=== PATIENT | female | born 1945 | race Caucasian/White ===

== ENCOUNTER → 2023-12-25 | Outpatient (CLI) | payer MEDICARE, BC, SELFPAY ==
[2023-12-25 16:39] LABS: Basophils # (Auto) 0.1 Thou/mm3 (0.0-0.2); Basophils % (Auto) 0 % (0-2.5); Eosinophils # (Auto) 0.1 Thou/mm3 (0.0-0.5); Eosinophils % (Auto) 0 % (0-10); Hematocrit 40.4 % (36.0-46.0); Hemoglobin 13.2 g/dL (12.0-16.0); Immature Granulocytes % (Auto) 1 % (0-0); Immature Granulocytes Auto 0.16 Thou/mm3 (0.00-0.00); Lymphocytes # (Auto) 1.2 Thou/mm3 (1.0-4.8); Lymphocytes % (Auto) 5 % (10-50); Mean Corpuscular HGB Conc 32.7 g/dl (31.0-37.0); Mean Corpuscular Hemoglobin 29.8 pg (25.0-35.0); Mean Corpuscular Volume 91 fL (80-100); Monocytes # (Auto) 1.5 Thou/mm3 (0.0-0.8); Monocytes % (Auto) 7 % (0-12); Neutrophils # (Auto) 19.8 Thou/mm3 (1.8-7.7); Neutrophils % (Auto) 87 % (37-80); Nucleated Red Blood Cell % 0 /100 WBC (0); Platelet Count 316 Thou/mm3 (140-440); Red Blood Count 4.43 Miln/mm3 (4.00-5.20); White Blood Count 22.8 Thou/mm3 (3.6-11.0)
[2023-12-25 17:13] LABS: Alanine Aminotransferase < 7 U/L (10-49); Albumin, Serum 4.3 gm/dL (3.4-4.8); Albumin/Globulin Ratio 1.7 (1.2-2.2); Alkaline Phosphatase 123 U/L (46-116); Anion Gap 7 (7-16); Aspartate Amino Transferase 20 U/L (0-34); BUN/Creatinine Ratio 21 Ratio (12-20); Bilirubin,Total 0.9 mg/dL (0.3-1.2); Blood Urea Nitrogen 23 mg/dL (9-23); Calcium 9.7 mg/dL (8.3-10.6); Calcium (Corrected) 9.7 mg/dL (8.5-10.1); Carbon Dioxide 24.2 mMol/L (20.0-31.0); Cardiac Risk Estimate 2.8 RATIO (3.7-5.6); Chloride 104 mMol/L (98-107); Cholesterol 152 mg/dL (132-200); Creatinine (Component) 1.1 mg/dL (0.6-1.3); Free T4 (Free Thyroxine) 1.34 ng/dL (0.89-1.76); Globulin 2.5 gm/dL (2.3-3.5); Glucose 115 mg/dL (74-106); HDL Cholesterol 54 mg/dL (40-60); LDL Cholesterol,Calculated 78 mg/dL (0-130); Osmolality,Calculated 274 (275-295); Potassium 4.4 mMol/L (3.4-5.1); Sodium 135 mMol/L (136-145); Thyroid Stimulating Hormone 0.64 uIU/mL (0.55-4.78); Total Protein 6.8 gm/dL (5.7-8.2); Triglycerides 102 mg/dL (30-150); eGFR 51 See Note
== END | disposition home or self-care (01) ==
PROVIDERS: PCP Family Medicine; Referring Provider Family Medicine; Visit Provider Family Medicine
DX: E78.1 Pure hyperglyceridemia (principal); Z13.1 Encounter for screening for diabetes mellitus; E03.2 Hypothyroidism due to medicaments and other exogenous substances; D50.0 Iron deficiency anemia secondary to blood loss (chronic)
CPT/HCPCS: 36415; 80053; 80061; 84439; 84443; 85025

== ENCOUNTER → 2024-01-06 | Outpatient (CLI) | payer MEDICARE, BC, SELFPAY ==
[2024-01-06 16:17] LABS: Basophils # (Auto) 0.1 Thou/mm3 (0.0-0.2); Basophils % (Auto) 1 % (0-2.5); Eosinophils # (Auto) 0.2 Thou/mm3 (0.0-0.5); Eosinophils % (Auto) 2 % (0-10); Hematocrit 37.9 % (36.0-46.0); Hemoglobin 12.6 g/dL (12.0-16.0); Immature Granulocytes % (Auto) 0 % (0-0); Immature Granulocytes Auto 0.02 Thou/mm3 (0.00-0.00); Lymphocytes # (Auto) 1.9 Thou/mm3 (1.0-4.8); Lymphocytes % (Auto) 20 % (10-50); Mean Corpuscular HGB Conc 33.2 g/dl (31.0-37.0); Mean Corpuscular Hemoglobin 30.4 pg (25.0-35.0); Mean Corpuscular Volume 91 fL (80-100); Monocytes # (Auto) 0.6 Thou/mm3 (0.0-0.8); Monocytes % (Auto) 7 % (0-12); Neutrophils # (Auto) 6.5 Thou/mm3 (1.8-7.7); Neutrophils % (Auto) 70 % (37-80); Nucleated Red Blood Cell % 0 /100 WBC (0); Platelet Count 329 Thou/mm3 (140-440); RDW Standard Deviation 46.8 fL (36.4-46.3); Red Blood Count 4.15 Miln/mm3 (4.00-5.20); White Blood Count 9.2 Thou/mm3 (3.6-11.0)
== END | disposition home or self-care (01) ==
LOC: COPL 15:26
PROVIDERS: PCP Family Medicine; Referring Provider Family Medicine; Visit Provider Family Medicine
DX: D50.0 Iron deficiency anemia secondary to blood loss (chronic) (principal)
CPT/HCPCS: 36415; 85025

== ENCOUNTER → 2024-02-26 | Outpatient (CLI) | payer MEDICARE, BC, SELFPAY | END | disposition home or self-care (01) | LOC: CDIM 14:03 | PROVIDERS: PCP Family Medicine | DX: M06.09 Rheumatoid arthritis without rheumatoid factor, multiple sites (principal) ==

== ENCOUNTER 2024-03-09 12:35 | Day surgery (SDC) | payer MEDICARE, BC, SELFPAY ==
--- NOTE | 2024-03-08 11:47 | EKG_ITS ---
[facility] Test Date: 2024-03-09 Pat Name: BELINDA CABAN Department: Room: - Gender: Female Aircraft Captain: RT STUDENT : 1945 Requested By: Yan Flor Order Number: [id number] Reading MD: Yan Flor Measurements Intervals [place] Rate: 86 P: 53 MI: 136 QRS: 46 QRSD: 89 T: 70 QT: 338 QTc: 405 Interpretive Statements SINUS RHYTHM Compared to ECG 06/11/2022 15:36:17 No significant changes /store/S0/[id number]
[2024-03-09] VITALS (10 sets, daily range): BP systolic 146–161; BP diastolic 71–91; PULSE 83–95; RESP 12–19; TEMP 36.2–36.7; O2SAT 95–99; BMI 24.0
[2024-03-09] MEDS: RINGERS LACTATED 500 ML 500 ML 20 ML IV (13:42)
[2024-03-09 14:22] LABS: Alanine Aminotransferase < 7 U/L (10-49); Albumin, Serum 4.4 gm/dL (3.4-4.8); Albumin/Globulin Ratio 1.6 (1.2-2.2); Alkaline Phosphatase 110 U/L (46-116); Anion Gap 6 (7-16); Aspartate Amino Transferase 12 U/L (0-34); BUN/Creatinine Ratio 21 Ratio (12-20); Bilirubin,Total 0.4 mg/dL (0.3-1.2); Blood Urea Nitrogen 17 mg/dL (9-23); Calcium 9.5 mg/dL (8.3-10.6); Calcium (Corrected) 9.5 mg/dL (8.5-10.1); Chloride 102 mMol/L (98-107); Creatinine (Component) 0.8 mg/dL (0.6-1.3); Estimated Creatinine Clearance 45.8 mL/min (>60); Globulin 2.7 gm/dL (2.3-3.5); Glucose 100 mg/dL (74-106); Osmolality,Calculated 275 (275-295); Potassium 4.6 mMol/L (3.4-5.1); Sodium 137 mMol/L (136-145); Total Protein 7.1 gm/dL (5.7-8.2); eGFR > 60 See Note
--- NOTE | 2024-03-09 16:30 | SUR.PHASEII ---
9118 Report received from Pippa GOMES
[2024-03-09] MEDS: PANTOPRAZOLE INJ 40 MG VIAL 80 MG IV (17:07)
--- NOTE | 2024-03-09 18:05 | SUR.PHASEII ---
1802 Patient meets discharge criteria from recovery, awake and alert, breathing unlabored, vital signs stable, denies pain, drinking water; tolerating well, patient assisted with dressing into her clothing by her daughter and this teletypewriter installer, discharge instructions given to patient and patients daughter, daughter signed discharge instructions. Patient given all her belongings prior to discharge, transported via wheelchair and left in a private vehicle.
== END 2024-03-09 18:05 | disposition home or self-care (01) ==
PROVIDERS: Anesthesiology; PCP Family Medicine; Referring Provider Internal Medicine Gastroenterology; Visit Provider Internal Medicine Gastroenterology
PROC: (CPT 43239; principal; 2024-03-09 14:15)
DX: K22.2 Esophageal obstruction (principal); K25.4 Chronic or unspecified gastric ulcer with hemorrhage; K29.70 Gastritis, unspecified, without bleeding; I10 Essential (primary) hypertension
CPT/HCPCS: 43239; 43249; 36415; 80053; 93005; A4217; A4649; C1725; J2470; J2704; J3010; J3490; J7120; J1805

== ENCOUNTER → 2024-03-21 | Outpatient (CLI) | payer MEDICARE, BC, SELFPAY ==
--- NOTE | 2024-03-21 16:28 | XR_ITS ---
Examination: Ribs, left, with PA chest, 5 views Technique: Chest PA, RIBS AP, RPO, LPO, AP coned lower ribs 5 views Exam date and time: March 21, 2024 7008 hours INDICATIONS: Patient fell March 18, 2024 with injury to the left chest, left rib pain Findings: Normal heart size No pneumothorax Prominent osteopenia Suspicious for fracture left ninth rib anteriorly IMPRESSION: No pneumothorax Suspicious for fracture nondisplaced left ninth rib anteriorly
== END | disposition home or self-care (01) ==
LOC: CDIM 16:21
PROVIDERS: PCP Family Medicine; Referring Provider Family Medicine; Visit Provider Family Medicine
DX: S29.9XXA Unspecified injury of thorax, initial encounter (principal); W19.XXXA Unspecified fall, initial encounter
CPT/HCPCS: 71101

== ENCOUNTER 2024-04-22 12:17 | Emergency (ER) | payer MEDICARE, BC, SELFPAY ==
[2024-04-22 12:20] VITALS: BP 135/85; PULSE 93; RESP 15; TEMP 36.8; O2SAT 98
[2024-04-22 12:21] VITALS: BMI 23.8
[2024-04-22 12:25] VITALS: PULSE 100; RESP 18; O2SAT 94
--- NOTE | 2024-04-22 12:28 | EKG_ITS ---
[facility] Test Date: 2024-04-22 Pat Name: BELINDA CABAN Department: Room: - Gender: Female Casino Floor Supervisor: : 1945 Requested By: Nasreen Ingram Order Number: [id number] Reading MD: Nasreen Ingram Measurements Intervals [place] Rate: 87 P: 67 IL: 132 QRS: 59 QRSD: 101 T: 58 QT: 341 QTc: 411 Interpretive Statements SINUS RHYTHM Compared to ECG 03/09/2024 12:31:48 No significant changes /store/S0/[id number].pdf
--- NOTE | 2024-04-22 12:28 | XR_ITS ---
Examination: CT abdomen with intravenous contrast CT pelvis with intravenous contrast 2-D coronal reconstructions 2-D sagittal reconstructions Date and time of exam:May 02, 2024 1456 hours Comparison 10/03/2021 INDICATIONS: Onset periumbilical pain today, history umbilical hernia. CTDI: vol (mGy) 15 DLP: (mGycm) 520 Technique: Multiple axial sections of the abdomen and pelvis have been obtained. 64 slice high-resolution scanner used. 3 mm axial sections have been obtained, post intravenous injection 60 cc [id number] 2-D sagittal, coronal reconstructions obtained. Low dose protocols were performed. One or more of the following dose reduction techniques were used; automated exposure control, adjustment of the mA and/or KV according to patient size, use of iterative reconstruction technique. Findings: No focal liver or splenic lesions No gallstones No pancreatic or adrenal mass Moderate bilateral renal parenchymal scar formation, no hydronephrosis Aorta normal size 6 mm fat-containing umbilical hernia Bowel is not present in this hernia defect Small lymph nodes in the right lower mesentery No pericecal inflammatory change No bowel obstruction No diverticulitis Large amounts of stool in the rectosigmoid Intact urinary bladder Moderate to advanced degenerative disc disease L5-S1 IMPRESSION: Moderate bilateral renal parenchymal scar formation, no hydronephrosis 6 mm fat-containing umbilical hernia, no bowel present in this hernia defect Small lymph nodes in the right lower mesentery No CT findings of appendicitis bowel obstruction or diverticulitis Large amounts of stool in the rectosigmoid
--- NOTE | 2024-04-22 12:28 | XR_ITS ---
Examination: AP chest single view Technique one AP upright portable chest single view Exam date and time: April 22, 2024 1325 hours INDICATIONS: Abdominal pain periumbilical pain chest pain today. FINDINGS: Normal heart size No lobar pneumonia or pulmonary edema The osseous structures are intact IMPRESSION: No lobar pneumonia or pulmonary edema
--- NOTE | 2024-04-22 12:30 | EDNOTE_ITS ---
<Statement entered by Danette Boogie MD - 04/23/24 16:19> As co-signing physician, I was present and available for consult prn. I concur with the plan and care as documented by the midlevel provider. ED Abdominal Pain RME/HPI General Chief Complaint: Abdominal Pain Stated complaint: abd pain Time seen by provider: 04/22/24 12:25 Arrival date/time: 04/22/24 12:17 RME / HPI RME / HPI narrative: 78-year-old female patient with significant history of Parkinson, hypertension, came in for evaluation regarding periumbilical pain. Onset of symptoms earlier this morning as sudden onset of periumbilical pain, described as crampy, similar to 5 out of 10. Denies any vomiting fever diarrhea constipation dysuria frequency or other complaints. Abdominal surgery includes bladder surgery. No medication was taken prior to arrival. Related Data Home Medications ?Medication ?Instructions ?Recorded ?Confirmed amantadine HCl 100 mg tablet 100 mg PO QDAY 03/09/24 0 03/09/24 amlodipine 5 mg tablet 5 mg PO QDAY 03/09/24 aspirin 81 mg tablet,delayed 81 mg PO QDAY 03/09/24 release atorvastatin 40 mg tablet 40 mg PO QPM 03/09/24 carbidopa ER 48.75 mg-levodopa 195 1 cap PO TID 03/09/24 mg capsule,extended release (Rytary) duloxetine 60 mg capsule,delayed 60 mg PO QDAY 5 03/09/24 release ropinirole 2 mg tablet 2 mg PO BID 03/09/24 5 tramadol 100 mg tablet,extended 100 mg PO QDAY PRN Marlin n 03/09/24 03/09/24 release 24 hr Held on 03/09/24. Instructions: Resume on 03/10/24. Previous Rx's ?Medication ?Instructions ?Recorded cefuroxime axetil 500 mg tablet 500 mg PO BID #14 tabs 04/22/24 lactulose 10 gram/15 mL oral 20 g (30 mL) PO BID PRN 0 04/22/24 solution constipation #300 mL Allergies Allergy/AdvReac Type Severity Reaction Status Date / Time No Known Allergies Allergy Verified 03/09/24 13:07 Review of Systems Review of Systems Narrative Review of Systems: Review of system reviewed and within normal limits except mentioned in HPI ED Exam Narrative Physical exam: VITAL SIGNS: Reviewed. GENERAL APPEARANCE: Alert and interactive, follows commands, no acute distress, HEAD AND FACE: Non-traumatic. ENT: PERRL, pink conjunctivitis, eyelid no trauma, Mucous membrane moist. NECK: Supple, nontender, no nuchal rigidity. CHEST: No tenderness, no crepitus, no paradoxical movement, no retractions. LUNGS: Clear, well ventilated, symmetric, no rales, no wheezing, no ronchi, no stridor, good breath sounds bilaterally. HEART: Regular rate, regular rhythm, no murmur, no gallops. ABDOMEN: Soft, positive bowel sounds, nondistended, no guarding, periumbilical tenderness no rebound, no masses, RECTAL: Deferred. GENITAL: Deferred. NEUROLOGICAL: Gross motor function intact sensory function intact, Appropriate for age. MUSCULOSKELETAL: low back nontender, full range of motion. EXTREMITIES: Nontender, full range of motion. SKIN: Color pink, dry, no rash, no lacerations, no abrasions, no contusions. LYMPHATICS: Deferred. Course Quality Measures none Orders Category Date Time Status CT Screening NOW Care 04/22/24 12:29 Active EKG (ED ONLY) *Do not use* NOW Care 04/22/24 12:29 Completed Insert IV NOW Care 04/22/24 12:[address] abdomen pelvis w con Stat Exams 04/22/24 12:28 Completed EKG (ED Only) Stat Exams 04/22/24 12:28 Draft XR chest 1V Stat Exams 04/22/24 12:28 Completed B-Type Natriuretic Peptide Stat Lab 04/22/24 12:35 Completed CBC Stat Lab 04/22/24 12:35 Completed Comprehensive Metabolic Panel Stat Lab 04/22/24 13:40 Completed Lipase Stat Lab 04/22/24 13:40 Completed Partial Thromboplastin Time Stat Lab 04/22/24 12:35 Completed Prothrombin Time with INR Stat Lab 04/22/24 12:35 Completed Troponin I Stat Lab 04/22/24 13:40 Completed Urinalysis, C/S if Indicated Stat Lab 04/22/24 12:43 Completed Urine Culture Stat Lab 04/22/24 12:43 Received Ketorolac Inj [Toradol Inj] Med 04/22/24 12:29 Discontinued 30 mg IVP X1 ONE Sodium Chloride 0.9% 1000 ml [Ns] 1,000 ml Med 04/22/24 12:30 Discontinued IV 999 mls/hr cefTRIAXone [Rocephin] 1,000 mg Med 04/22/24 17:07 Active SODIUM CHLORIDE 0.9% (Popper) [Ns 0.9% (P)] 50 ml IV X1 Vital Signs Vital signs: Vital Signs Temperature 98.2 F 04/22/24 12:20 Pulse Rate 93 04/22/24 12:20 Respiratory Rate 15 04/22/24 12:20 Blood Pressure 135/85 H 04/22/24 12:20 Pulse Oximetry (%) 98 04/22/24 12:20 Oxygen Delivery Method Room Air 04/22/24 12:20 Abdominal Pain [facility] Narrative [facility] Narrative:: 78-year-old female patient with significant history of Parkinson, hypertension, came in for evaluation regarding periumbilical pain. Onset of symptoms earlier this morning as sudden onset of periumbilical pain, described as crampy, similar to 5 out of 10. Denies any vomiting fever diarrhea constipation dysuria frequency or other complaints. Abdominal surgery includes bladder surgery. No medication was taken prior to arrival. EKG as interpreted by me showed normal sinus rhythm, ventricular rate of 87 bpm, no ST segment elevation depression noted. Laboratory Significant for UTI. CT scan of the abdomen and pelvis showed fat-containing umbilical hernia, and significant fecal material in the rectosigmoid colon. Otherwise unremarkable. Results discussed with the patient and family Patient received IV fluids for hydration, Toradol, and ceftriaxone IV Prior to discharge patient is not having any abdominal pain. Patient appears nontoxic and hemodynamically stable. Patient discharged home and instructed to follow-up with primary care provider in 24 to 48 hours. Instructed to return to the emergency department immediately if worsening of symptoms Patient data External records reviewed:: None Clinical information provided by:: patient and family Social determinants that could affect healthcare access:: none Patient has the following chronic illnesses:: Parkinson hypertension How is presenting disease/condition affected by chronic disease/condition?: exacerbated by Evaluation data The following diagnostics were reviewed and interpreted by me:: lab results, radiology exam(s) and EKG tracing(s) Lab and/or radiology exams considered but not ordered:: None Interpretation Summary: See results in MDM Medications / Prescriptions Medications or Prescriptions considered but not ordered:: None Medication administrations:: Medication Administration History Ceftriaxone Sodium 1,000 mg/ (Sodium Chloride) 50 mls @ 100 mls/hr IV X1 ONE Stop: 04/22/24 17:36 Discontinued Medications Sodium Chloride (Ns) 1,000 mls @ 999 mls/hr IV .Q1H1M ONE Stop: 04/22/24 13:30 Last Infusion: 04/22/24 14:00 Dose: Infused Documented By: Admin: 04/22/24 12:46 Dose: 999 mls/hr Documented By: DILCIA Ketorolac Tromethamine (Ketorolac Inj 30 Mg/Ml Vial) 30 mg IVP X1 ONE Stop: 04/22/24 12:30 Last Admin: 04/22/24 12:46 Dose: 30 mg Documented By: DILCIA Toradol IV, IV fluids and ceftriaxone IV Consultations Consultation(s) initiated? (list below): No Diagnosis Differential diagnosis abdominal pain: abdominal pain, constipation and small bowel obstruction Most likely diagnosis given after review of the tests above:: Umbilical hernia, UTI, constipation Admission Indicated Admission indicated?: not indicated Admission Request Was there a request for admission?: No Disposition Plan Disposition Plan: Discharge Discharge Attestation Discharge Attestation: The patient and all family members were given an opportunity to ask questions and understood the discharge instructions. Discharge instructions specifically effects, indications for sooner follow up or return to the emergency department, and the expected course of current diagnosis. Patient condition: Stable Discharge Plan Plan Patient Disposition: HOME (Self Care) Disposition Comment: Stable Prescriptions/Referrals Prescriptions/Med Rec: New lactulose 10 gram/15 mL solution 20 g PO BID PRN (Reason: constipation) Qty: 300 0RF cefuroxime axetil 500 mg tablet 500 mg PO BID Qty: 14 0RF No Action amantadine HCl 100 mg tablet 100 mg PO QDAY Patient Comments: TAKE 1 TABLET BY MOUTH TWICE A DAY atorvastatin 40 mg tablet 40 mg PO QPM Patient Comments: TAKE 1 TABLET BY MOUTH EVERY DAY amlodipine 5 mg tablet 5 mg PO QDAY Patient Comments: TAKE 1 TABLET BY MOUTH EVERY DAY ropinirole 2 mg tablet 2 mg PO BID Patient Comments: TAKE 1 TABLET BY MOUTH THREE TIMES A DAY duloxetine 60 mg capsule,delayed release(DR/EC) 60 mg PO QDAY tramadol 100 mg tablet extended release 24 hr 100 mg PO QDAY PRN (Reason: Pain) Patient Comments: TAKE 1 TABLET BY MOUTH EVERY DAY Rytary 48.75-195 mg capsule, extended release 1 cap PO TID aspirin 81 mg Tablet,Delayed Release (Dr/Ec) 81 mg PO QDAY Referrals: Mikal Chisholm MD [Primary Care Provider] - In 1 week Problem List Clinical Impression: Hernia, umbilical, Constipation, UTI (urinary tract infection) Patient/Caregiver Discharge Instructions Discharge Activity: activity as tolerated Education Materials: Understanding Urinary Tract ... Additional Instructions: Thank you for the opportunity for serving you today. You are stable for discharged . You are advised to: Follow-up with your PCP in 1 to 2 days and as per referral to general surgeon regarding your umbilical hernia Return to ED for worsening of symptoms Increase oral fluids Take medication as prescribed Print Language: Faroese Stand Alone Forms: Eleanor Award Info., Patient Portal Info Letter PA/LEGAL ANALYST Supervising Physician PA/LEGAL ANALYST Supervising Physician: Md Keagan
[2024-04-22] MEDS: SODIUM CHLORIDE 0.9% 1000 ML 1,000 ML 999 ML IV (12:46)
[2024-04-22] MEDS: KETOROLAC INJ 30 MG/ML VIAL IVP (12:46)
[2024-04-22 12:51] LABS: Collection Type, Urine Clean Catch
[2024-04-22 12:52] LABS: Basophils # (Auto) 0.1 Thou/mm3 (0.0-0.2); Basophils % (Auto) 1 % (0-2.5); Eosinophils # (Auto) 0.2 Thou/mm3 (0.0-0.5); Eosinophils % (Auto) 2 % (0-10); Hematocrit 39.8 % (36.0-46.0); Hemoglobin 13.4 g/dL (12.0-16.0); Immature Granulocytes % (Auto) 0 % (0-0); Immature Granulocytes Auto 0.01 Thou/mm3 (0.00-0.00); Lymphocytes # (Auto) 1.6 Thou/mm3 (1.0-4.8); Lymphocytes % (Auto) 20 % (10-50); Mean Corpuscular HGB Conc 33.7 g/dl (31.0-37.0); Mean Corpuscular Hemoglobin 29.8 pg (25.0-35.0); Mean Corpuscular Volume 89 fL (80-100); Monocytes # (Auto) 0.6 Thou/mm3 (0.0-0.8); Monocytes % (Auto) 7 % (0-12); Neutrophils # (Auto) 5.5 Thou/mm3 (1.8-7.7); Neutrophils % (Auto) 69 % (37-80); Nucleated Red Blood Cell % 0 /100 WBC (0); Platelet Count 289 Thou/mm3 (140-440); RDW Standard Deviation 44.2 fL (36.4-46.3); Red Blood Count 4.49 Miln/mm3 (4.00-5.20); White Blood Count 7.9 Thou/mm3 (3.6-11.0)
[2024-04-22 13:19] LABS: B-Type Natriuretic Peptide < 20 pg/mL (0-100)
[2024-04-22 13:37] LABS: Bacteria,Urine 4+; Bilirubin,Urine Negative (Negative); Blood,Urine Negative (Negative); Clarity,Urine Clear (Clear/Hazy); Color,Urine Yellow (Lt Yel-Yel); Glucose, Urine Negative (Negative); Hyaline Casts,Urine < 1 /hpf (0-1); Ketones,Urine Negative (Negative); Leukocyte Esterase,Urine Positive (Negative); Nitrite,Urine Positive (Negative); PH,Urine 5.5 (5.0-7.0); Protein,Urine Negative (Neg - Trace); RBC,Urine 1 /hpf (0-3); Specific Gravity,Urine 1.019 (1.001-1.035); Squamous Epithelial Cell,Urine 1 /hpf (0-5); Urobilinogen,Urine Negative mg/dL (0.0-1.0); WBC,Urine 13 /hpf (0-5)
[2024-04-22 13:41] LABS: Culture Indicated,Urine Yes
[2024-04-22 14:01] LABS: Partial Thromboplastin Time 26.2 Seconds (22.0-36.0); Prothrombin Time 10.9 Seconds (9.0-12.2)
[2024-04-22 14:11] VITALS: BP 148/79; PULSE 89; RESP 18; TEMP 36.4; O2SAT 99
[2024-04-22 14:14] LABS: Alanine Aminotransferase < 7 U/L (10-49); Albumin, Serum 4.2 gm/dL (3.4-4.8); Albumin/Globulin Ratio 1.6 (1.2-2.2); Alkaline Phosphatase 116 U/L (46-116); Anion Gap 8 (7-16); Aspartate Amino Transferase 18 U/L (0-34); BUN/Creatinine Ratio 24 Ratio (12-20); Bilirubin,Total 0.6 mg/dL (0.3-1.2); Blood Urea Nitrogen 19 mg/dL (9-23); Calcium 9.1 mg/dL (8.3-10.6); Calcium (Corrected) 9.1 mg/dL (8.5-10.1); Carbon Dioxide 25.3 mMol/L (20.0-31.0); Chloride 105 mMol/L (98-107); Creatinine (Component) 0.8 mg/dL (0.6-1.3); Estimated Creatinine Clearance 45.8 mL/min (>60); Globulin 2.6 gm/dL (2.3-3.5); Glucose 93 mg/dL (74-106); Lipase 29 U/L (12-53); Osmolality,Calculated 277 (275-295); Potassium 5.3 mMol/L (3.4-5.1); Sodium 138 mMol/L (136-145); Total Protein 6.8 gm/dL (5.7-8.2); Troponin I < 0.020 ng/mL (0.0-0.045); eGFR > 60 See Note
[2024-04-22 16:06] VITALS: BP 160/91; PULSE 88; RESP 19; TEMP 36.5; O2SAT 99
[2024-04-22] MEDS: cefTRIAXone 1,000 MG in SODIUM CHLORIDE 0.9% (Popper) 50 ML 100 MG IV (17:17)
[2024-04-22 18:06] VITALS: BP 171/86; PULSE 88; RESP 16; TEMP 36.7; O2SAT 99
== END 2024-04-22 18:06 | disposition home or self-care (01) ==
PROVIDERS: Nurse Practitioner Family; Emergency Provider Emergency Medicine; PCP Family Medicine
DX: K42.9 Umbilical hernia without obstruction or gangrene (principal); K59.00 Constipation, unspecified; N39.0 Urinary tract infection, site not specified; R07.9 Chest pain, unspecified; I10 Essential (primary) hypertension
CPT/HCPCS: 36415; 71045; 74177; 80053; 81001; 83690; 83880; 84484; 85025; 85610; 85730; 87077; 87086; 87186; 93005; 96361; 96365; 96375; 99285; A4649; J0696; J1885; J7030; J7050; Q9967

== ENCOUNTER → 2024-05-24 | Outpatient (CLI) | payer MEDICARE, BC, SELFPAY ==
--- NOTE | 2024-05-24 16:33 | XR_ITS ---
Examination: Foot, right, 3 views Technique: AP, oblique, lateral views foot, 3 views Date and time of exam: May 24, 2024 1656 hrs. Indications: Right foot pain beginning one week ago. 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
== END | disposition home or self-care (01) ==
PROVIDERS: PCP Family Medicine; Referring Provider Family Medicine; Visit Provider Family Medicine
DX: M85.88 Other specified disorders of bone density and structure, other site (principal); M19.071 Primary osteoarthritis, right ankle and foot; Z89.411 Acquired absence of right great toe
CPT/HCPCS: 73630

== ENCOUNTER → 2024-05-25 | Outpatient (CLI) | payer MEDICARE, BC, SELFPAY ==
[2024-05-25 11:19] LABS: Quantiferon-TB* See Sep Rpt
[2024-05-25 11:52] LABS: Basophils # (Auto) 0.1 Thou/mm3 (0.0-0.2); Basophils % (Auto) 1 % (0-2.5); Eosinophils # (Auto) 0.1 Thou/mm3 (0.0-0.5); Eosinophils % (Auto) 2 % (0-10); Hematocrit 38.8 % (36.0-46.0); Hemoglobin 13.1 g/dL (12.0-16.0); Immature Granulocytes % (Auto) 0 % (0-0); Immature Granulocytes Auto 0.01 Thou/mm3 (0.00-0.00); Lymphocytes # (Auto) 1.5 Thou/mm3 (1.0-4.8); Lymphocytes % (Auto) 21 % (10-50); Mean Corpuscular HGB Conc 33.8 g/dl (31.0-37.0); Mean Corpuscular Hemoglobin 29.8 pg (25.0-35.0); Mean Corpuscular Volume 88 fL (80-100); Monocytes # (Auto) 0.4 Thou/mm3 (0.0-0.8); Monocytes % (Auto) 6 % (0-12); Neutrophils # (Auto) 5.2 Thou/mm3 (1.8-7.7); Neutrophils % (Auto) 71 % (37-80); Nucleated Red Blood Cell % 0 /100 WBC (0); Platelet Count 282 Thou/mm3 (140-440); RDW Standard Deviation 44.3 fL (36.4-46.3); White Blood Count 7.4 Thou/mm3 (3.6-11.0)
[2024-05-25 12:12] LABS: Sed Rate (ESR) 23 mm/hr (0-30)
[2024-05-25 12:17] LABS: Parathyroid Hormone Intact 96.8 pg/ml (18.5-88.0)
[2024-05-25 12:22] LABS: Vitamin D 25 Hydroxy Total 34.2 ng/mL (7.3-40.2)
[2024-05-25 12:33] LABS: Alanine Aminotransferase < 7 U/L (10-49); Albumin, Serum 4.1 gm/dL (3.4-4.8); Albumin/Globulin Ratio 1.5 (1.2-2.2); Alkaline Phosphatase 122 U/L (46-116); Anion Gap 9 (7-16); Aspartate Amino Transferase 15 U/L (0-34); BUN/Creatinine Ratio 20 Ratio (12-20); Bilirubin,Total 0.8 mg/dL (0.3-1.2); Blood Urea Nitrogen 16 mg/dL (9-23); C-Reactive Protein < 0.5 mg/dL (0.0-0.9); Carbon Dioxide 26.5 mMol/L (20.0-31.0); Chloride 106 mMol/L (98-107); Creatinine (Component) 0.8 mg/dL (0.6-1.3); Globulin 2.7 gm/dL (2.3-3.5); Glucose 92 mg/dL (74-106); Osmolality,Calculated 282 (275-295); Potassium 3.8 mMol/L (3.4-5.1); Sodium 141 mMol/L (136-145); Total Protein 6.8 gm/dL (5.7-8.2); Uric Acid 4.7 mg/dL (3.1-7.8); eGFR > 60 See Note
== END | disposition home or self-care (01) ==
PROVIDERS: PCP Family Medicine; Referring Provider Physician Assistant Medical; Visit Provider Physician Assistant Medical
DX: Z11.1 Encounter for screening for respiratory tuberculosis (principal); G20.A1 Parkinson's disease without dyskinesia, without mention of fluctuations; M06.09 Rheumatoid arthritis without rheumatoid factor, multiple sites; M17.12 Unilateral primary osteoarthritis, left knee; M21.941 Unspecified acquired deformity of hand, right hand; M81.0 Age-related osteoporosis without current pathological fracture; R79.89 Other specified abnormal findings of blood chemistry; Z89.411 Acquired absence of right great toe; Z79.899 Other long term (current) drug therapy
CPT/HCPCS: 36415; 80053; 82306; 83970; 84550; 85025; 85652; 86140; 86480

== ENCOUNTER → 2024-07-04 | Outpatient (CLI) | payer MEDICARE, BC, SELFPAY ==
[2024-07-04 11:15] LABS: Misc Send Out* See Sep Rpt
== END | disposition home or self-care (01) ==
LOC: SLDO 11:11
PROVIDERS: Referring Provider Emergency Medicine; Visit Provider Emergency Medicine
DX: E21.3 Hyperparathyroidism, unspecified (principal)
CPT/HCPCS: 82340; 82570

== ENCOUNTER → 2024-08-23 | Outpatient (CLI) | payer MEDICARE, BC, SELFPAY ==
[2024-08-23 16:31] LABS: Basophils # (Auto) 0.1 Thou/mm3 (0.0-0.2); Basophils % (Auto) 1 % (0-2.5); Eosinophils # (Auto) 0.1 Thou/mm3 (0.0-0.5); Eosinophils % (Auto) 2 % (0-10); Hematocrit 39.7 % (36.0-46.0); Hemoglobin 12.9 g/dL (12.0-16.0); Immature Granulocytes Auto 0.02 Thou/mm3 (0.00-0.00); Lymphocytes # (Auto) 1.9 Thou/mm3 (1.0-4.8); Lymphocytes % (Auto) 24 % (10-50); Mean Corpuscular HGB Conc 32.5 g/dl (31.0-37.0); Mean Corpuscular Hemoglobin 29.9 pg (25.0-35.0); Mean Corpuscular Volume 92 fL (80-100); Monocytes # (Auto) 0.5 Thou/mm3 (0.0-0.8); Monocytes % (Auto) 6 % (0-12); Neutrophils # (Auto) 5.1 Thou/mm3 (1.8-7.7); Neutrophils % (Auto) 67 % (37-80); Nucleated Red Blood Cell # 0.00 Thou/mm3 (0.00-0.00); Nucleated Red Blood Cell % 0 /100 WBC (0); Platelet Count 288 Thou/mm3 (140-440); RDW Standard Deviation 46.0 fL (36.4-46.3); Red Blood Count 4.32 Miln/mm3 (4.00-5.20); White Blood Count 7.7 Thou/mm3 (3.6-11.0)
[2024-08-23 16:46] LABS: Anion Gap 11 (7-16); BUN/Creatinine Ratio 21 Ratio (12-20); Blood Urea Nitrogen 19 mg/dL (9-23); Calcium 9.3 mg/dL (8.3-10.6); Carbon Dioxide 26.8 mMol/L (20.0-31.0); Chloride 106 mMol/L (98-107); Creatinine (Component) 0.9 mg/dL (0.6-1.3); Glucose 112 mg/dL (74-106); Osmolality,Calculated 290 (275-295); Potassium 3.5 mMol/L (3.4-5.1); Sodium 144 mMol/L (136-145); eGFR > 60 See Note
[2024-08-23 16:48] LABS: INR 1.0 (0.9-1.3); Partial Thromboplastin Time 26.7 Seconds (22.0-36.0); Prothrombin Time 11.2 Seconds (9.0-12.2)
== END | disposition home or self-care (01) ==
LOC: COPL 15:40
PROVIDERS: PCP Family Medicine; Referring Provider Internal Medicine; Visit Provider Internal Medicine
DX: I25.10 Atherosclerotic heart disease of native coronary artery without angina pectoris (principal); I48.91 Unspecified atrial fibrillation
CPT/HCPCS: 36415; 80048; 85025; 85610; 85730

== ENCOUNTER 2024-10-07 18:37 | Inpatient (IN) | payer MEDICARE, BC, SELFPAY ==
[2024-10-07 18:40] VITALS: BP 117/91; PULSE 54; RESP 18; TEMP 36.8; O2SAT 98
[2024-10-07 18:43] VITALS: BP 128/74; PULSE 105; RESP 18; TEMP 37.2; O2SAT 95; BMI 22.8
--- NOTE | 2024-10-07 19:30 | XR_ITS ---
Examination: CT brain head without contrast. 2-D sagittal coronal reconstructions Date and time of exam:October 07, 2024, 1947 hours Comparison July 05, 2008 INDICATIONS: Altered mental status today CTDI: vol (mGy):48.3 DLP: (mGycm):973. Technique: Multiple CT axial sections of the brain have been obtained, 5 mm slice thickness. Contrast has not been administered. 2-D sagittal, coronal reconstructions have been obtained Low dose protocols were performed. One or more of the following dose reduction techniques were used; automated exposure control, adjustment of the mA and/or KV according to patient size, use of iterative reconstruction technique. Findings: No significant ventricular enlargement. Intra-axial or extra-axial hemorrhage density is not seen. No mass effect or midline shift Basal cisterns are not remarkable. Fourth ventricle is midline. Cranial vault intact. Impression: Negative for acute hemorrhage, mass effect or midline shift Advise clinical correlation and follow up accordingly
--- NOTE | 2024-10-07 19:30 | EDNOTE_ITS ---
Altered Mental Status RME/HPI General Chief Complaint: Abdominal Pain Stated Complaint: GENERAL WEAKNESS Time Seen by Provider: 10/07/24 19:29 Source: EMS Arrival date/time: 10/07/24 18:37 RME / HPI RME / HPI narrative: Patient is a 79-year-old female with a history of hypertension and parkinsonian disease is brought in by EMS for increased, generalized, weakness, and confusion. EMS report the patient has not been ambulating at baseline for the last several days. She is also experiencing new hallucinations that are described as her pets being euthanized. She lives at home alone, she does have a caregiver that assist every Thursday, Thursday, and Thursday. She has had no falls. No fevers or chills. No vomiting or diarrhea. No dysuria. No injuries. She is not take any blood thinners. Related Data Home Medications ?Medication ?Instructions ?Recorded ?Confirmed amantadine HCl 100 mg tablet 100 mg PO QDAY 03/09/24 0 03/09/24 amlodipine 5 mg tablet 5 mg PO QDAY 03/09/24 aspirin 81 mg tablet,delayed 81 mg PO QDAY 03/09/24 release atorvastatin 40 mg tablet 40 mg PO QPM 03/09/24 carbidopa ER 48.75 mg-levodopa 195 1 cap PO TID 03/09/24 mg capsule,extended release (Rytary) duloxetine 60 mg capsule,delayed 60 mg PO QDAY 5 03/09/24 release ropinirole 2 mg tablet 2 mg PO BID 03/09/24 5 tramadol 100 mg tablet,extended 100 mg PO QDAY PRN Marlin n 03/09/24 03/09/24 release 24 hr Held on 03/09/24. Instructions: Resume on 03/10/24. Previous Rx's ?Medication ?Instructions ?Recorded cefuroxime axetil 500 mg tablet 500 mg PO BID #14 tabs 04/22/24 lactulose 10 gram/15 mL oral 20 g (30 mL) PO BID PRN 0 04/22/24 solution constipation #300 mL Allergies Allergy/AdvReac Type Severity Reaction Status Date / Time No Known Allergies Allergy Verified 03/09/24 13:07 Review of Systems Review of Systems Systems Reviewed: All systems reviewed, normal except as documented ED Exam General General appearance: Present alert, cachectic (She is very mildly cachectic) and other (Patient is somewhat somnolent but does answer questions appropriately.) Head Head exam: Present atraumatic Eye Eye exam: Present normal appearance, PERRL and EOMI ENT ENT exam: Present normal exam, normal oropharynx and mucous membranes moist Neck Neck exam: Present normal inspection, full ROM and trachea midline Chest Chest inspection: Present normal inspection and symmetric chest wall rise Respiratory Respiratory exam: Present normal lung sounds bilaterally Cardiovascular Cardiovascular exam: Present regular rate, normal rhythm and normal heart sounds Abdominal Exam Abdominal exam: Present soft; Absent tenderness, guarding or rebound Extremities Exam Extremities exam: Present normal inspection and full ROM Neurological Exam Neurological exam: Present alert, oriented X3 and other (Initially appears to be contractures of the bilateral fingers, however patient is able to extend and flex her fingers on a formal exam.) Psychiatric Psychiatric exam: Present depressed and other (Patient is not responding to any internal stimuli.) Skin Skin exam: Present warm, dry, intact and normal color Course Quality Measures none Orders Category Date Time Status Patient Condition Routine Admission 10/08/24 12:[address] in Observation Status Routine Admission 10/08/24 12:56 Active Activity as Tolerated Routine Care 10/08/24 12:57 Ordered Consult Security Guards Dispatcher X1 Care 10/07/24 23:26 Active Flu & Pneumonia Vaccine Screen ONCE Care 10/08/24 12:56 Active In and Out Catheter X1 Care 10/07/24 20:51 Completed Notify provider NEEDED Care 10/08/24 12:56 Active Obtain weight daily Care 10/08/24 12:57 Active Orthostatic Vitals NOW Care 10/08/24 13:04 Active Strict Intake and Output Routine Care 10/08/24 12:57 Ordered Home Health Referral Routine Cons 10/08/24 13:02 Active Referral Physical Therapy Routine Cons 10/08/24 13:02 Active Referral Physical Therapy Stat Cons 10/07/24 23:31 Completed Diet Regular Diet 10/08/[address] head/brain wo con Stat Exams 10/07/24 19:30 Completed XR hip RT w pelvis 2-3V Routine Exams 10/08/24 13:02 Taken Alcohol, Blood Medical Stat Lab 10/07/24 20:14 Completed Blood Culture (Lab) Stat Lab 10/07/24 20:14 Received CBC AM DRAW Lab 10/09/24 05:00 Ordered CBC AM DRAW Lab 10/10/24 05:00 Ordered CBC AM DRAW Lab 10/11/24 05:00 Ordered CBC Stat Lab 10/07/24 20:14 Completed CMP [Comprehensive Metabolic Panel] Stat Lab 10/07/24 20:14 Completed Comprehensive Metabolic Panel AM DRAW Lab 10/09/24 05:00 Ordered Comprehensive Metabolic Panel AM DRAW Lab 10/10/24 05:00 Ordered Comprehensive Metabolic Panel AM DRAW Lab 10/11/24 05:00 Ordered Drug Screen,Urine Stat Lab 10/07/24 20:53 Completed Folate Routine Lab 10/08/24 12:59 Ordered HCG,Qualitative Serum Stat Lab 10/07/24 20:14 Completed Lactic Acid [Lactate (Lactic Acid)] Stat Lab 10/07/24 20:14 Completed Lipase Stat Lab 10/07/24 20:14 Completed Lipid Panel AM DRAW Lab 10/09/24 05:00 Ordered Magnesium Routine Lab 10/08/24 12:58 Ordered Phosphorous Routine Lab 10/09/24 12:58 Ordered Prothrombin Time with INR AM DRAW Lab 10/09/24 05:00 Ordered TSH [Thyroid Stimulating Hormone] Stat Lab 10/07/24 20:14 Completed Thyroid Stimulating Hormone AM DRAW Lab 10/09/24 05:00 Ordered UA, C/S IF [Urinalysis, C/S if Indicated] Stat Lab 10/07/24 20:53 Completed Vitamin B12 Routine Lab 10/08/24 12:59 Ordered Acetaminophen Tab [Tylenol Tab] Med 10/08/24 12:56 Active 650 mg PO Q6H PRN Aspirin [Ecotrin] Med 10/08/24 10:26 Discontinued 81 mg PO X1 ONE DULoxetine HCL [Cymbalta] Med 10/08/24 10:26 Discontinued 60 mg PO X1 ONE Enoxaparin [Lovenox] Med 10/09/24 09:00 Active 40 mg SC QDAY Ondansetron Inj [Zofran Inj] Med 10/08/24 12:56 Active 4 mg IVP Q6H PRN Ringers Lactated 1000 ml [Lactated Ringers] 1,000 ml Med 10/08/24 13:00 Active IV 60 mls/hr amLODIPine BESYLATE [Norvasc] Med 10/08/24 10:26 Discontinued 5 mg PO X1 ONE amantadine HCL [Symmetrel] Med 10/08/24 21:00 Active 100 mg PO BID amantadine HCL [Symmetrel] Med 10/08/24 10:26 Discontinued 100 mg PO X1 ONE traMADol HCL [Ultram] Med 10/08/24 13:15 Active 25 mg PO BID Code Status Routine Oth 10/08/24 12:56 Ordered Vital Signs Vital signs: Vital Signs Temperature 98.2 F 10/07/24 18:40 Pulse Rate 54 L 10/07/24 18:40 Respiratory Rate 18 10/07/24 18:40 Blood Pressure 117/91 H 10/07/24 18:40 Pulse Oximetry (%) 98 10/07/24 18:40 Oxygen Delivery Method Room Air 10/07/24 18:40 Altered Mental Status MDM Narrative MDM Narrative:: Patient is a 79-year-old female with a history of hypertension and parkinsonian disease is brought in by EMS for increased, generalized, weakness, and confusion. EMS report the patient has not been ambulating at baseline for the last several days. She is also experiencing new hallucinations that are described as her pets being euthanized. She lives at home alone, she does have a caregiver that assist every Thursday, Thursday, and Thursday. She has had no fa lls. No fevers or chills. No vomiting or diarrhea. No dysuria. No injuries. She is not take any blood thinners. On exam, patient is very thin and dry appearing, her vital signs are stable. She does answer questions appropriately although she is slightly somnolent. Workup reveals very mild leukocytosis of 12.4 thousand, hemoglobin hematocrit are stable. Her metabolic panel is unremarkable. TSH is unremarkable. Urinalysis is unremarkable. CT of the head is obtained which revealed no acute intracranial abnormality. I had a very long detailed discussion with the patient's daughter. This lasted approximately 15 minutes. I spoke with Ariela Dunne at [phone], she lives in [place], [place]. I discussed long-term goals and appropriate care for her mother. Her mother currently lives home alone but does have occasional help every Thursday, Thursday, and Thursday. Patient has advancing parkinsonian disease, weakness, and is now having hallucinations. Patient has access to a car and the keys her vehicle. She does not want to be placed in an assisted living care facility. Patient had serial examinations and at no time was able to sit up without assistance and her bed. She is I am unable to stand without assistance. I do not believe the patient can probably be discharged this Thursday night to her home alone. Patient will require PT eval and social work services for possible placement. Discussed with staff mechanical engineer hospitalist team who did not feel this patient warranted their care. Case signed out to Dr. Mckeon at shift change. Patient data External records reviewed:: None Clinical information provided by:: patient, EMS and family Social determinants that could affect healthcare access:: none Patient has the following chronic illnesses:: Hypertension, hyperlipidemia, parkinsonian disease How is presenting disease/condition affected by chronic disease/condition?: no chronic disease Evaluation data The following diagnostics were reviewed and interpreted by me:: other (specify) Lab and/or radiology exams considered but not ordered:: n/a Interpretation Summary: n/a Medications / Prescriptions Medications or Prescriptions considered but not ordered:: n/a Medication administrations:: Medication Administration History Acetaminophen (Acetaminophen 325 Mg Tablet) 650 mg PO Q6H PRN PRN Reason: Fever >101.5 Stop: 11/07/24 12:55 Amantadine HCl (Amantadine Hcl 100 Mg Capsule) 100 mg PO BID [facility] Stop: 10/15/24 20:59 Enoxaparin Sodium (Enoxaparin Sod Inj 40 Mg/0.4 Ml Syringe) 40 mg SC QDAY [facility] Stop: 10/23/24 08:59 Lactated Ringer's (Lactated Ringers) 1,000 mls @ 60 mls/hr IV .[id number] [facility] Stop: 11/07/24 12:59 Ondansetron HCl (Ondansetron Inj 2 Mg/Ml Inj 2 Ml) 4 mg IVP Q6H PRN; Protocol PRN Reason: NAUSEA OR VOMITING Stop: 11/07/24 12:55 Tramadol HCl (Tramadol Hcl 50 Mg Tablet) 25 mg PO BID [facility] Stop: 10/13/24 13:14 Discontinued Medications Amantadine HCl (Amantadine Hcl 100 Mg Capsule) 100 mg PO X1 ONE Stop: 10/08/24 10:27 Last Admin: 10/08/24 11:31 Dose: 100 mg Documented By: ARF Amlodipine Besylate (Amlodipine Besylate 5 Mg Tablet) 5 mg PO X1 ONE Stop: 10/08/24 10:27 Last Admin: 10/08/24 11:30 Dose: 5 mg Documented By: ARF Aspirin (Aspirin Ec 81 Mg Tabec) 81 mg PO X1 ONE Stop: 10/08/24 10:27 Last Admin: 10/08/24 11:31 Dose: 81 mg Documented By: ARF Duloxetine HCl (Duloxetine Hcl 30 Mg Capsule) 60 mg PO X1 ONE Stop: 10/08/24 10:27 Last Admin: 10/08/24 11:31 Dose: 60 mg Documented By: ARF n/a Consultations Consultation(s) initiated? (list below): No Diagnosis Differential diagnosis altered mental status: altered mental status, delirium, dementia and sepsis Most likely diagnosis given after review of the tests above:: Geriatric decline, parkinsonian disease Admission Indicated Admission indicated?: indicated Explain why admission is indicated or not indicated:: Patient has no immediate family in the area. She lives home alone. She is able to ambulate. She is unable to sit up in the exam table. Admission Request Was there a request for admission?: No Disposition Plan Disposition Plan: Admit Discharge Plan Plan Patient condition on transfer: Stable Prescriptions/Referrals Prescriptions/Med Rec: No Action amantadine HCl 100 mg tablet 100 mg PO QDAY Patient Comments: TAKE 1 TABLET BY MOUTH TWICE A DAY atorvastatin 40 mg tablet 40 mg PO QPM Patient Comments: TAKE 1 TABLET BY MOUTH EVERY DAY amlodipine 5 mg tablet 5 mg PO QDAY Patient Comments: TAKE 1 TABLET BY MOUTH EVERY DAY ropinirole 2 mg tablet 2 mg PO BID Patient Comments: TAKE 1 TABLET BY MOUTH THREE TIMES A DAY duloxetine 60 mg capsule,delayed release(DR/EC) 60 mg PO QDAY tramadol 100 mg tablet extended release 24 hr 100 mg PO QDAY PRN (Reason: Pain) Patient Comments: TAKE 1 TABLET BY MOUTH EVERY DAY Rytary 48.75-195 mg capsule, extended release 1 cap PO TID aspirin 81 mg Tablet,Delayed Release (Dr/Ec) 81 mg PO QDAY lactulose 10 gram/15 mL solution 20 g PO BID PRN (Reason: constipation) Qty: 300 0RF cefuroxime axetil 500 mg tablet 500 mg PO BID Qty: 14 0RF Referrals: No Primary/Family,Physician [Primary Care Provider] - In 1 week Problem List Clinical Impression: Parkinsonism, Generalized weakness Patient/Caregiver Discharge Instructions Print Language: Indonesian
[2024-10-07 19:31] VITALS: PULSE 108; RESP 16; O2SAT 98
[2024-10-07 20:38] LABS: Lactate (Lactic Acid) 1.2 mMol/L (0.4-2.0)
[2024-10-07 20:39] LABS: Basophils # (Auto) 0.1 Thou/mm3 (0.0-0.2); Basophils % (Auto) 1 % (0-2.5); Eosinophils # (Auto) 0.1 Thou/mm3 (0.0-0.5); Eosinophils % (Auto) 0 % (0-10); Hematocrit 42.0 % (36.0-46.0); Hemoglobin 13.5 g/dL (12.0-16.0); Immature Granulocytes Auto 0.03 Thou/mm3 (0.00-0.00); Lymphocytes # (Auto) 1.2 Thou/mm3 (1.0-4.8); Lymphocytes % (Auto) 10 % (10-50); Mean Corpuscular HGB Conc 32.1 g/dl (31.0-37.0); Mean Corpuscular Hemoglobin 29.3 pg (25.0-35.0); Mean Corpuscular Volume 91 fL (80-100); Monocytes # (Auto) 0.8 Thou/mm3 (0.0-0.8); Monocytes % (Auto) 6 % (0-12); Neutrophils # (Auto) 10.2 Thou/mm3 (1.8-7.7); Neutrophils % (Auto) 83 % (37-80); Nucleated Red Blood Cell # 0.00 Thou/mm3 (0.00-0.00); Nucleated Red Blood Cell % 0 /100 WBC (0); Platelet Count 297 Thou/mm3 (140-440); RDW Standard Deviation 45.0 fL (36.4-46.3); Red Blood Count 4.61 Miln/mm3 (4.00-5.20); White Blood Count 12.4 Thou/mm3 (3.6-11.0)
[2024-10-07 21:06] LABS: HCG,Qualitative Serum Positive
[2024-10-07 21:10] LABS: Alanine Aminotransferase < 7 U/L (10-49); Albumin, Serum 4.4 gm/dL (3.4-4.8); Albumin/Globulin Ratio 1.5 (1.2-2.2); Alcohol, Blood Medical < 3.0 mg/dL (0-10.0); Alkaline Phosphatase 108 U/L (46-116); Anion Gap 14 (7-16); Aspartate Amino Transferase 20 U/L (0-34); BUN/Creatinine Ratio 19 Ratio (12-20); Bilirubin,Total 1.0 mg/dL (0.3-1.2); Blood Urea Nitrogen 15 mg/dL (9-23); Calcium 10.0 mg/dL (8.3-10.6); Calcium (Corrected) 10.0 mg/dL (8.5-10.1); Carbon Dioxide 25.5 mMol/L (20.0-31.0); Chloride 103 mMol/L (98-107); Creatinine (Component) 0.8 mg/dL (0.6-1.3); Estimated Creatinine Clearance 45.1 mL/min (>60); Globulin 2.9 gm/dL (2.3-3.5); Glucose 85 mg/dL (74-106); Lipase 22 U/L (12-53); Osmolality,Calculated 282 (275-295); Potassium 3.4 mMol/L (3.4-5.1); Sodium 142 mMol/L (136-145); Thyroid Stimulating Hormone 0.75 uIU/mL (0.55-4.78); Total Protein 7.3 gm/dL (5.7-8.2); eGFR > 60 See Note
[2024-10-07 21:25] LABS: Collection Type, Urine Voided
[2024-10-07 21:33] LABS: Bilirubin,Urine Negative (Negative); Blood,Urine Negative (Negative); Clarity,Urine Clear (Clear/Hazy); Color,Urine Yellow (Lt Yel-Yel); Culture Indicated,Urine Not Indicated; Glucose, Urine Negative (Negative); Ketones,Urine 2+ (Negative); Leukocyte Esterase,Urine Negative (Negative); Nitrite,Urine Negative (Negative); PH,Urine 5.5 (5.0-7.0); Protein,Urine Negative (Neg - Trace); RBC,Urine 2 /hpf (0-3); Specific Gravity,Urine 1.025 (1.001-1.035); Squamous Epithelial Cell,Urine 2 /hpf (0-5); Urobilinogen,Urine Negative mg/dL (0.0-1.0); WBC,Urine 1 /hpf (0-5)
[2024-10-07 21:36] VITALS: BP 130/65; PULSE 93; RESP 17; TEMP 36.8; O2SAT 96
[2024-10-07 21:40] LABS: Amphetamine/Methamp Scrn,U Negative (Negative); Barbiturate Screen,Urine Negative (Negative); Benzodiazepines Screen,Urine Negative (Negative); Benzoylecgonine Screen, Ur Negative (Negative); Fentanyl Screen,Urine Negative (Negative); Opiate Screen,Urine Negative (Negative); THC Screen,Urine Negative (Negative)
[2024-10-07 23:45] VITALS: BP 121/61; PULSE 88; RESP 17; O2SAT 96
[2024-10-08] VITALS (10 sets, daily range): BP systolic 116–156; BP diastolic 57–80; PULSE 74–103; RESP 14–20; TEMP 36.6–37.1; O2SAT 95–98; BMI 12.0; BMI 23.0
--- NOTE | 2024-10-08 05:14 | EDNOTE_ITS ---
Emergency Room Addendum Addendum Narrative: Patient is a 79-year-old female presenting with weakness with inability to care for herself at home. She lives at home alone. She has a history of hypertension as well as Parkinson's disease. She will need physical therapy and home health care social worker consultation in the morning. Patient has been in stable condition throughout my shift. Patient will be signed out to Dr. Goodrich.
--- NOTE | 2024-10-08 06:20 | PD.EDADDENDU ---
Emergency Room Addendum Addendum Narrative: 0600: Care assumed from Dr. Mckeon, the previous shift emergency physician. Past medical, surgical, social and family history reviewed. Vitals and home medications reviewed. I will assume the care of the patient at this time, pending long term care social worker in the morning. Please refer to the emergency department record for history and examination from initial visit.? The patient was placed in ED observation care at 10/08/2024 at 0600 hours. The patient was placed in ED observation care pending placement/ admission/ final disposition. The patients past medical history, social history, and family history were reviewed. The plan of care will include serial examinations. While in ED observation the patient will have access to water, food, and personal hygiene. If the patient takes home medication(s), they will be continued in ED observation. Physical exam by me shows patient under no acute distress at this time. 1230: Discussed test HPI, PMHx, lab, radiology results and/or management with resident working with the hospitalist. Will admit for further evaluation and management. Accepts patient for admission. 1255: Home health is needed for generalized weakness and to support muscle strength. 1620: ED observation care ended at 10/08/2024 at 1620 hours, when the patient went upstairs for admission.
[2024-10-08] MEDS: DULoxetine HCL 30 MG CAPSULE 60 MG PO (11:31)
[2024-10-08] MEDS: ASPIRIN EC 81 MG TABEC PO (11:31)
--- NOTE | 2024-10-08 11:52 | PC.NURSE ---
PT FAMILY PRESENT AND IS AWARE OF HER WEAKNESS. PT WORKED WITH PT AND SHE WAS UNABLE TO STAND WITHOUT MAX ASSIST. PT GIVEN A SANDWHICH A TOOK A FEW BITES. SHE IS C/O BELLY PAIN WELL. PT TOLERATED MEDS WELL
--- NOTE | 2024-10-08 12:55 | PC.SS ---
Addendum entered by Marion Camp 10/08/24 15:04: 1503-ASW received a call from Elfego from [facility] [phone] stating they can service the pt on Thursday, which is the soonest they can come to the pts home to start HH/PT. Original Note: 1230-ASW and ED Vp Business Development Brenda Zhao had questions from Dr. Shah regarding HH for this pt due to generalized weakness that involves pts earting disorder. Dr. Shah would like Home health/PT for this pt. ED Vp Business [employer] Brenda Zhao spoke with ER provider and he agrees to home health for this pt. ER provider will put in the note for Home health request.
--- NOTE | 2024-10-08 13:02 | XR_ITS ---
Examination:Right hip AP, lateral, AP pelvis 3 views Technique: Hip AP lateral, AP pelvis, 3 views Exam date and time:October 08, 2024, 1311 hrs. Indications: History falls, patient complaining of right hip pain. Findings: Severe osteopenia Moderate narrowing hip joints No acute right hip fracture. Left hip bones of the pelvis intact Impression: No acute hip or pelvic fracture. Given the severe osteopenia, suggest 1-2 day follow-up AP pelvis as clinically warranted..
--- NOTE | 2024-10-08 13:10 | ESHP_ITS ---
Documentation for date of: 10/08/24 HPI History of Present Illness History of present illness: Ms. Soto is a 79-year-old female with past medical history significant for hypertension, restless leg syndrome, rheumatoid arthritis and Parkinson's disease presented to the ED after feeling generalized weakness. I personally spoke to the patient, daughter Dana and son Aly as well to obtain further history. Patient states that at her baseline she is able to ambulate with a walker around the house, use the restroom, take a bath and eat. Patient does have a director of field sales that comes home to prepare meals for her as well as give her medicine. Patient states the last meal she had was on and that night she had a bad dream which caused her a lot of stress she felt like she was hallucinating and decided not to eat all day due to stress on Thursday. By Thursday patient became increasingly weak and was not able to ambulate and get out of bed much. Patient does have a history of rheumatoid arthritis for which he sees Dr. Franklin. For Parkinson's disease patient regularly follows up with Dr Rivas. Patient denies any syncopal episodes dizziness or ground-level falls. Patient does complain of pain in the right leg that extends into the groin. Patient denies any abdominal pain, constipation or diarrhea. PMH: Hypertension, restless leg syndrome, rheumatoid arthritis, Parkinson's disease PSH: Left knee replacement surgery SH: Patient denies any history or current use of tobacco, illicit drugs or alcohol Allergies: No known allergies Home meds: Rytary, ropinirole, amlodipine, aspirin, amantadine, duloxetine, tramadol Review of Systems Review of Systems Systems Reviewed: All systems reviewed, normal except as documented Exam Vital Signs Temp Pulse Resp BP Pulse Ox O2 Del Method 98.8 F 96 18 138/71 H 97 Room Air 10/08/24 12:04 10/08/24 12:04 10/08/24 12:04 10/08/24 12:04 10/08/24 12:04 10/08/24 12:04 Narrative Exam GENERAL: A&Ox3, elderly female appears to be older than stated age, petite and pleasant to converse, Awake, Not in acute distress NEURO: no focal neurological deficits noted HEENT: Atraumatic, Normocephalic. mucous membranes moist. Eyes open, symmetrical, & clear HEART: Normal Heart Sounds LUNGS: Clear to auscultation with no wheezing or crackles. 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 Results: Labs 10/07/24 20:14 10/07/24 20:14 Labs: Short CBC 10/07/24 Range/Units 20:14 WBC 12.4 H (3.6-11.0) Thou/mm3 Hgb 13.5 (12.0-16.0) g/dL Hct 42.0 (36.0-46.0) % Plt Count 297 (140-440) Thou/mm3 BMP 10/07/24 20:14 Sodium 142 Potassium 3.4 Chloride 103 Carbon Dioxide 25.5 BUN 15 Creatinine 0.8 Glucose 85 Calcium 10.0 Liver Function 10/07/24 Range/Units 20:14 Total Bilirubin 1.0 (0.3-1.2) mg/dL AST 20 (0-34) U/L ALT < 7 L (10-49) U/L Alkaline Phosphatase 108 (46-116) U/L Albumin 4.4 (3.4-4.8) gm/dL Urine 10/07/24 Range/Units 20:53 Urine Color Yellow (Lt Yel-Yel) Urine Clarity Clear (Clear/Hazy) Urine pH 5.5 (5.0-7.0) Ur Specific Shell 1.025 (1.001-1.035) Urine Protein Negative (Neg - Trace) Urine Glucose (UA) Negative (Negative) Quality Measures Quality Measures VTE prophylaxis Advance care planning discussed with:: patient and child Medications Home Medications and Allergies Home Medications ?Medication ?Instructions ?Recorded ?Confirmed ?Type amantadine HCl 100 mg tablet 100 mg PO QDAY 03/09/24 0 03/09/24 History amlodipine 5 mg tablet 5 mg PO QDAY 03/09/24 History aspirin 81 mg tablet,delayed 81 mg PO QDAY 03/09/24 History release atorvastatin 40 mg tablet 40 mg PO QPM 03/09/24 History carbidopa ER 48.75 mg-levodopa 195 1 cap PO TID 10/08/24 History mg capsule,extended release (Rytary) duloxetine 60 mg capsule,delayed 60 mg PO QDAY 5 03/09/24 History release ropinirole 2 mg tablet 2 mg PO BID 03/09/24 5 History tramadol 100 mg tablet,extended 100 mg PO QDAY PRN Marlin n 03/09/24 03/09/24 History release 24 hr Held on 03/09/24. Instructions: Resume on 03/10/24. Allergies Allergy/AdvReac Type Severity Reaction Status Date / Time No Known Allergies Allergy Verified 03/09/24 13:07 Visit Medications Acetaminophen (Acetaminophen 325 Mg Tablet) 650 mg PO Q6H PRN PRN Reason: Fever >101.5 Stop: 11/07/24 12:55 Amantadine HCl (Amantadine Hcl 100 Mg Capsule) 100 mg PO BID [facility] Stop: 10/15/24 20:59 Enoxaparin Sodium (Enoxaparin Sod Inj 40 Mg/0.4 Ml Syringe) 40 mg SC QDAY [facility] Stop: 10/23/24 08:59 Lactated Ringer's (Lactated Ringers) 1,000 mls @ 60 mls/hr IV .[id number] [facility] Stop: 11/07/24 12:59 Ondansetron HCl (Ondansetron Inj 2 Mg/Ml Inj 2 Ml) 4 mg IVP Q6H PRN; Protocol PRN Reason: NAUSEA OR VOMITING Stop: 11/07/24 12:55 Tramadol HCl (Tramadol Hcl 50 Mg Tablet) 25 mg PO BID [facility] Stop: 10/13/24 13:14 Discontinued Medications Amantadine HCl (Amantadine Hcl 100 Mg Capsule) 100 mg PO X1 ONE Stop: 10/08/24 10:27 Last Admin: 10/08/24 11:31 Dose: 100 mg Amlodipine Besylate (Amlodipine Besylate 5 Mg Tablet) 5 mg PO X1 ONE Stop: 10/08/24 10:27 Last Admin: 10/08/24 11:30 Dose: 5 mg Aspirin (Aspirin Ec 81 Mg Tabec) 81 mg PO X1 ONE Stop: 10/08/24 10:27 Last Admin: 10/08/24 11:31 Dose: 81 mg Duloxetine HCl (Duloxetine Hcl 30 Mg Capsule) 60 mg PO X1 ONE Stop: 10/08/24 10:27 Last Admin: 10/08/24 11:31 Dose: 60 mg Assessment & Plan Plan Ms. Soto is a 79-year-old female with past medical history significant for hypertension, restless leg syndrome, rheumatoid arthritis, Hx. of TIA in jan 2023 and Parkinson's disease presented to the ED after feeling generalized weakness and poor oral intake. #Generalized weakness, in the setting of #Poor oral intake -Pt states that she has been feeling progressive weakness and is unable to ambulate as she used to because she has been not eating enough. - Patient states that she often get hallucinations/dreams and causes her stress which leads to her not eating most of the day and then she gets weak - Patient has strictly refused rehab, SNF or any other forms of living situations other than wanting to only be back home. -CT of head is negative, labs are largely unremarkable and electrolytes are with in normal limits, urine analysis as well as urine tox screen is clean Plan: -Ordered PT -Ensure plus high protein ordered with meals -Maintenance fluid ordered -Pt will likely will discharge with home health PT as pt refuse SNF placement or acute rehab -Encouraged son at bedside to being food that she may likely to eat #Primary hypertension Resumed home amlodipine 5 mg daily #Restless leg syndrome -Resumed home ropinirole -Ordered iron panel with ferritin for a.m. 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 -Resumed home tramadol #Parkinson's disease -Resumed home Carbidopa/levodopa and Amantadine -Resumed home duloxitine Health Maintenance Disposition: Medsurg DVT Prophylaxis: enoxaparin 40mg Qdaily GI Prophylaxis: not indicated Diet: regular diet Lines: Peripheral lines Code status: DNR Assessment and plan discussed with my attending physician Dr. Jaden Shah (PGY-2)- Internal medicine resident Attending Provider Attestation/Addendum I attest that I was physically present for the evaluation, physical examination, lab and imaging review of the patient with the residents. I discussed the case with the residents and agree with the findings and plans of care as documented above. After examination of the patient and review of the clinical data I feel that this patient needs admission to the hospital for further treatment/evaluation. Harper Stanley MD
[2024-10-08 14:35] LABS: Magnesium 1.9 mg/dL (1.6-2.6)
[2024-10-08] MEDS: RINGERS LACTATED 1000 ML 1,000 ML 60 ML IV (14:39)
--- NOTE | 2024-10-08 21:20 | PC.NURSE ---
Rytary is non formulary and we dont have it in the pyxis, pt's son will bring that medication in AM.
[2024-10-09] VITALS (7 sets, daily range): BP systolic 96–139; BP diastolic 58–76; PULSE 78–95; RESP 15–18; TEMP 36.1–36.5; O2SAT 94–98
[2024-10-09 07:58] LABS: Basophils # (Auto) 0.1 Thou/mm3 (0.0-0.2); Basophils % (Auto) 1 % (0-2.5); Eosinophils # (Auto) 0.2 Thou/mm3 (0.0-0.5); Eosinophils % (Auto) 3 % (0-10); Hematocrit 36.3 % (36.0-46.0); Hemoglobin 11.9 g/dL (12.0-16.0); Immature Granulocytes Auto 0.02 Thou/mm3 (0.00-0.00); Lymphocytes # (Auto) 1.6 Thou/mm3 (1.0-4.8); Lymphocytes % (Auto) 21 % (10-50); Mean Corpuscular HGB Conc 32.8 g/dl (31.0-37.0); Mean Corpuscular Hemoglobin 30.0 pg (25.0-35.0); Mean Corpuscular Volume 91 fL (80-100); Monocytes # (Auto) 0.7 Thou/mm3 (0.0-0.8); Monocytes % (Auto) 9 % (0-12); Neutrophils # (Auto) 5.1 Thou/mm3 (1.8-7.7); Neutrophils % (Auto) 67 % (37-80); Nucleated Red Blood Cell # 0.00 Thou/mm3 (0.00-0.00); Nucleated Red Blood Cell % 0 /100 WBC (0); Platelet Count 262 Thou/mm3 (140-440); RDW Standard Deviation 46.2 fL (36.4-46.3); Red Blood Count 3.97 Miln/mm3 (4.00-5.20); White Blood Count 7.6 Thou/mm3 (3.6-11.0)
[2024-10-09 08:12] LABS: Ferritin 36 ng/mL (7.3-270.7); Iron 31 mcg/dL (50-170); Percent Iron Saturation 12 % (20-55); Total Iron Binding Capacity 248 mcg/dL (250-425); Unsaturated Iron Binding 217 (225-295)
[2024-10-09 08:14] LABS: INR 1.0 (0.9-1.3); Prothrombin Time 10.8 Seconds (9.0-12.2)
[2024-10-09] MEDS: ASPIRIN EC 81 MG TABEC PO (08:39)
[2024-10-09] MEDS: ENOXAPARIN SOD INJ 40 MG/0.4 ML SYRINGE SC (08:40)
[2024-10-09] MEDS: DULoxetine HCL 30 MG CAPSULE 60 MG PO (08:40)
[2024-10-09 08:41] LABS: Alanine Aminotransferase 11 U/L (10-49); Albumin, Serum 3.5 gm/dL (3.4-4.8); Albumin/Globulin Ratio 1.6 (1.2-2.2); Alkaline Phosphatase 86 U/L (46-116); Anion Gap 11 (7-16); Aspartate Amino Transferase 15 U/L (0-34); BUN/Creatinine Ratio 20 Ratio (12-20); Bilirubin,Total 0.4 mg/dL (0.3-1.2); Blood Urea Nitrogen 14 mg/dL (9-23); Calcium 9.0 mg/dL (8.3-10.6); Calcium (Corrected) 9.4 mg/dL (8.5-10.1); Carbon Dioxide 27.2 mMol/L (20.0-31.0); Cardiac Risk Estimate 2.6 RATIO (3.7-5.6); Chloride 105 mMol/L (98-107); Cholesterol 123 mg/dL (132-200); Creatinine (Component) 0.7 mg/dL (0.6-1.3); Estimated Creatinine Clearance 51.5 mL/min (>60); Globulin 2.2 gm/dL (2.3-3.5); Glucose 103 mg/dL (74-106); HDL Cholesterol 48 mg/dL (40-60); LDL Cholesterol,Calculated 65 mg/dL (0-130); Osmolality,Calculated 285 (275-295); Phosphorous 3.3 mg/dL (2.4-5.1); Potassium 3.4 mMol/L (3.4-5.1); Sodium 143 mMol/L (136-145); Thyroid Stimulating Hormone 0.72 uIU/mL (0.55-4.78); Total Protein 5.7 gm/dL (5.7-8.2); Triglycerides 48 mg/dL (30-150); eGFR > 60 See Note
[2024-10-09] MEDS: RYTARY PO ×2 (14:03→21:19)
--- NOTE | 2024-10-09 14:12 | ESPR_ITS ---
<Statement entered by Padmaja Hayden MD - 10/09/24 15:56> Patient was seen and examined at bedside. I agree on the assessment and plan on this note as documented by resident Janet Marquez DO PGY1. 79-year-old female with past medical history as below admitted for generalized weakness and poor oral intake, currently patient is stable has no current complaints, patient will need discharge to alf facility per physical therapy recommendations however patient disagrees with the plan, will likely need home health if discharged home, pending acceptance by home health. Will discuss with family again in a.m. Case discussed with attending Dr. Harper Hayden MD PGY-2 Documentation for date of: 10/09/24 Subjective Subjective Interval history: No acute overnight events. Patient seen and examined at bedside with son. Patient has no new complaints. Denies chest pain, abdominal pain, urinary symptoms or fever. States that bilateral feet hurt slightly. Patient overall feels well today and has started eating per son at bedside. Patient refuses SNF however is agreeable to home health. Pending social work case manager to set up home health. Per chart review, patient consumed 50% of last night's meal. Exam Vital Signs Temp Pulse Resp BP Pulse Ox O2 Del Method 97.2 F 82 18 134/72 H 97 Room Air 10/09/24 11:59 10/09/24 11:59 10/09/24 11:59 10/09/24 11:59 10/09/24 11:59 10/09/24 11:59 Narrative Exam GENERAL: AOx3, no acute distress, appears older than stated age HEENT: NC/AT, mucous membranes moist, bilateral sclera anicteric CARDIOVASCULAR: regular rate and rhythm, S1/S2 present, no murmurs appreciated PULMONARY: clear to auscultation bilaterally, no rales/rhonchi/wheezes ABDOMINAL: soft, non-tender, non-distended, no rebound/guarding, bowel sounds present EXTREMITIES: no peripheral edema, bilateral inverted feet, 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, BLE strength 5/5 SKIN: warm and dry, intact, no rashes NEURO: CN II-XII grossly intact, no focal deficits, alert, following commands Objective Labs 10/09/24 07:15 10/09/24 07:15 Labs: Laboratory Results - last 24 hr 10/08/24 10/09/24 14:04 07:15 WBC 7.6 RBC 3.97 L Hgb 11.9 L Hct 36.3 MCV 91 MCH 30.0 MCHC 32.8 RDW Std Deviation 46.2 Plt Count 262 D Neut % (Auto) 67 Lymph % (Auto) 21 Leon % (Auto) 9 Eos % (Auto) 3 Baso % (Auto) 1 Neut # (Auto) 5.1 Lymph # (Auto) 1.6 Leon # (Auto) 0.7 Eos # (Auto) 0.2 Baso # (Auto) 0.1 Immature Gran # (Auto) 0.02 H Absolute Nucleated RBC 0.00 Immature Gran % 0 Nucleated RBC % 0 PT 10.8 INR 1.0 Sodium 143 Potassium 3.4 Chloride 105 Carbon Dioxide 27.2 Anion Gap 11 BUN 14 Creatinine 0.7 Estim Creat Clear Calc 51.5 L eGFR > 60 BUN/Creatinine Ratio 20 Glucose 103 Calculated Osmolality 285 Calcium 9.0 Corrected Calcium 9.4 Phosphorus 3.3 Magnesium 1.9 Iron 31 L TIBC 248 L Iron Saturation 12 L Unsat Iron Binding 217 L Ferritin 36 Total Bilirubin 0.4 D AST 15 ALT 11 Alkaline Phosphatase 86 D Total Protein 5.7 Albumin 3.5 D Globulin 2.2 L Albumin/Globulin Ratio 1.6 Triglycerides 48 Cholesterol 123 L LDL Cholesterol, Calc 65 HDL Cholesterol 48 Cholesterol/HDL Ratio 2.6 L TSH 0.72 Quality Measures Quality Measures VTE prophylaxis Advance care planning discussed with:: patient Assessment & Plan Assessment Current Active Medications: Generic Name Dose Route Start Last Admin Trade Name Freq PRN Reason Stop Dose Admin Acetaminophen 650 mg 10/08/24 12:56 Acetaminophen 325 Mg Tablet PO 11/07/24 12:55 Q6H PRN Fever >101.5 Amantadine HCl 100 mg 10/08/24 21:00 10/09/24 10:58 Amantadine Hcl 100 Mg Capsule PO 10/15/24 20:59 Not Given BID SAADIA Amlodipine Besylate 5 mg 10/09/24 09:00 10/09/24 08:39 Amlodipine Besylate 5 Mg Tablet PO 11/08/24 08:59 5 mg QDAY SAADIA Administration Aspirin 81 mg 10/09/24 09:00 10/09/24 08:39 Aspirin Ec 81 Mg Tabec PO 11/08/24 08:59 81 mg QDAY SAADIA Administration Rytary(Carbidopa- 0 ea 10/09/24 14:00 10/09/24 14:03 Levodopa) Er Capsule PO 11/08/24 13:59 1 capsule 48.75-195 Mg TID SAADIA Administration Duloxetine HCl 60 mg 10/09/24 09:00 10/09/24 08:40 Duloxetine Hcl 30 Mg Capsule PO 11/08/24 08:59 60 mg QDAY SAADIA Administration Enoxaparin Sodium 40 mg 10/09/24 09:00 10/09/24 08:40 Enoxaparin Sod Inj 40 Mg/0.4 Ml Syringe SC 10/23/24 08:59 40 mg QDAY SAADIA Administration Lactated Ringer's 1,000 mls @ 60 mls/hr 10/08/24 13:00 10/08/24 14:39 Lactated Ringers IV 11/07/24 12:59 60 mls/hr .[id number] SAADIA Administration Ondansetron HCl 4 mg 10/08/24 12:56 Ondansetron Inj 2 Mg/Ml Inj 2 Ml IVP 11/07/24 12:55 Q6H PRN NAUSEA OR VOMITING Protocol Ropinirole HCl 2 mg 10/08/24 21:00 10/09/24 08:39 Ropinirole Hcl 1 Mg Tablet PO 11/07/24 20:59 2 mg BID SAADIA Administration Tramadol HCl 25 mg 10/08/24 13:15 10/09/24 08:39 Tramadol Hcl 50 Mg Tablet PO 10/13/24 13:14 25 mg BID SAADIA Administration Plan Ms. Soto is a 79-year-old female with past medical history significant for hypertension, restless leg syndrome, rheumatoid arthritis, Hx. of TIA in jan 2023 and Parkinson's disease presented to the ED after feeling generalized weakness and poor oral intake. #Generalized weakness, in the setting of #Poor oral intake States that she has been feeling progressive weakness and is unable to ambulate as she used to because she has been not eating enough Endorses that she often get hallucinations/dreams and causes her stress which leads to her not eating most of the day and then she gets weak. Patient has strictly refused rehab, SNF or any other forms of living situations other than wanting to only be back home. CT of head is negative, labs are largely unremarkable and electrolytes are with in normal limits, UA and UDS clean Plan: - Ordered PT - Ensure plus high protein ordered with meals - Maintenance fluid stopped - Pt will likely will discharge with home health PT as pt refuse SNF placement or acute rehab - Encouraged son at bedside to being food that she may likely to eat #Primary hypertension - Resumed home amlodipine 5 mg daily #Restless leg syndrome Iron low at 31, TIBC low 248, Iron sat low 12, ferritin wnl, TSH wnl Plan: - Resumed home ropinirole 2 mg BID - F/u folate and B12 #Rheumatoid arthritis Right foot is mildly twisted anteriorly, boutonniere deformity noted in both hands. Patient recieves infliximab 100 mg infusions and follows radiologic technologist mammogram outpatient. Plan: - Resumed home tramadol 25 mg BID #Parkinson's disease Plan: - Resumed home Carbidopa/levodopa, amantadine 100 mg BID and duloxetine 60 mg QD Hospital management: Lines: PIV Diet: Regular Bowel: not indicated GI prophylaxis: not indicated DVT prophylaxis: enoxaparin 40 mg QD Disposition: [facility] for management CODE STATUS: DNR Plan of care discussed with attending Dr. Stanley, and PGY-2 Dr. Hayden. Janet Marquez, DO PGY-1 Internal Medicine Attending Provider Attestation/Addendum I attest that I was physically present for the evaluation, physical examination, lab and imaging review of the patient with the residents. I discussed the case with the residents and agree with the findings and plans of care as documented above. At bedside today, patient continues to have generalized weakness. She is alert and oriented, able to answer question and follow commands appropriately but has significant generalized weakness. Physical therapy recommended for SNF placement however patient refuses SNF. Patient does have caretakers that come to home and help but patient does not have 24/7 care at home. Home health has been ordered to continue with home health PT. Patient also has poor oral intake we will continue to encourage. Resume home medication for restless leg syndrome and parkinsonism. Harper Stanley MD
--- NOTE | 2024-10-09 15:21 | PC.SS ---
This is 79-year-old, , female who presented to the ED due to suffering from general weakness. Patient appeared alert and oriented to self, place and situation. Patient is pleasant. Patient reported that she resides alone at home. She has a couple of caregivers that come in and out of the house. Patient has a walker, lift chair, BSC. Patient appears to need assistance with the majority of her ADLs. Patient reported that Dana should be here tomorrow to assist her at home. Patient assigned her daughter, Dana or son, Aly ([phone]) as her medical surrogate decision makers. Patient's PCP is Dr. Chisholm. SW discussed discharge options with Aly and patient; patient declined SNF and requested to return home with home health. Patient will need ambulance transportation upon discharge. Discharge plan: home with home health. Medical surrogate decision makers: Dana or Aly.
[2024-10-09] MEDS: RINGERS LACTATED 1000 ML 1,000 ML 60 ML IV (17:47)
[2024-10-09 19:09] LABS: Folate 14.48 ng/mL (>5.38); Vitamin B12 258 pg/mL (211-911)
[2024-10-09] MEDS: BENZOCAINE/MENTHOL 1 LOZENGE PO (20:24)
[2024-10-09] MEDS: ATORVASTATIN CALCIUM 20 MG TABLET 40 MG PO (21:20)
[2024-10-10] VITALS (7 sets, daily range): BP systolic 115–155; BP diastolic 67–81; PULSE 78–99; RESP 15–17; TEMP 36.1–36.4; O2SAT 95–98; BMI 12.0
[2024-10-10] MEDS: RYTARY PO ×3 (05:13→21:14)
[2024-10-10] MEDS: RINGERS LACTATED 1000 ML 1,000 ML 60 ML IV (06:05)
[2024-10-10 06:10] LABS: Basophils # (Auto) 0.1 Thou/mm3 (0.0-0.2); Basophils % (Auto) 1 % (0-2.5); Eosinophils # (Auto) 0.2 Thou/mm3 (0.0-0.5); Eosinophils % (Auto) 3 % (0-10); Hematocrit 38.0 % (36.0-46.0); Hemoglobin 12.5 g/dL (12.0-16.0); Immature Granulocytes Auto 0.03 Thou/mm3 (0.00-0.00); Lymphocytes # (Auto) 1.4 Thou/mm3 (1.0-4.8); Lymphocytes % (Auto) 19 % (10-50); Mean Corpuscular HGB Conc 32.9 g/dl (31.0-37.0); Mean Corpuscular Hemoglobin 29.7 pg (25.0-35.0); Mean Corpuscular Volume 90 fL (80-100); Monocytes # (Auto) 0.6 Thou/mm3 (0.0-0.8); Monocytes % (Auto) 8 % (0-12); Neutrophils # (Auto) 5.0 Thou/mm3 (1.8-7.7); Neutrophils % (Auto) 69 % (37-80); Nucleated Red Blood Cell # 0.00 Thou/mm3 (0.00-0.00); Nucleated Red Blood Cell % 0 /100 WBC (0); Platelet Count 232 Thou/mm3 (140-440); RDW Standard Deviation 45.3 fL (36.4-46.3); Red Blood Count 4.21 Miln/mm3 (4.00-5.20); White Blood Count 7.2 Thou/mm3 (3.6-11.0)
[2024-10-10 06:51] LABS: Alanine Aminotransferase < 7 U/L (10-49); Albumin, Serum 3.5 gm/dL (3.4-4.8); Albumin/Globulin Ratio 1.5 (1.2-2.2); Alkaline Phosphatase 92 U/L (46-116); Anion Gap 11 (7-16); Aspartate Amino Transferase 17 U/L (0-34); BUN/Creatinine Ratio 13 Ratio (12-20); Bilirubin,Total 0.4 mg/dL (0.3-1.2); Blood Urea Nitrogen 8 mg/dL (9-23); Calcium 9.0 mg/dL (8.3-10.6); Calcium (Corrected) 9.4 mg/dL (8.5-10.1); Carbon Dioxide 24.8 mMol/L (20.0-31.0); Chloride 104 mMol/L (98-107); Creatinine (Component) 0.6 mg/dL (0.6-1.3); Estimated Creatinine Clearance 60.1 mL/min (>60); Globulin 2.3 gm/dL (2.3-3.5); Glucose 95 mg/dL (74-106); Magnesium 1.7 mg/dL (1.6-2.6); Osmolality,Calculated 277 (275-295); Potassium 3.8 mMol/L (3.4-5.1); Sodium 140 mMol/L (136-145); Total Protein 5.8 gm/dL (5.7-8.2); eGFR > 60 See Note
[2024-10-10] MEDS: ENOXAPARIN SOD INJ 40 MG/0.4 ML SYRINGE SC (10:00)
[2024-10-10] MEDS: DULoxetine HCL 30 MG CAPSULE 60 MG PO (10:00)
[2024-10-10] MEDS: ASPIRIN EC 81 MG TABEC PO (10:01)
--- NOTE | 2024-10-10 10:08 | PC.SS ---
Follow up note: Return home with HH
--- NOTE | 2024-10-10 12:10 | PC.SS ---
SS met with pt and dtrDana. SS provided dtr with verbal d/c options for d/c to home or SNF. Dtr refuses pt to go to SNF. Dtr, Dana's choice is for pt to return home upon dc. SS provided dtr with [facility] for HH choices. Pt states she was followed by HH agency from [place]. Pt and dtr have chosen [facility].
--- NOTE | 2024-10-10 14:00 | ESPR_ITS ---
<Statement entered by Padmaja Hayden MD - 10/11/24 14:55> Patient was seen and examined at bedside. I agree on the assessment and plan on this note as documented by resident Janet Marquez DO PGY1. 79-year-old female with past medical history as below admitted for generalized weakness initially plan was to discharge patient to home health however patient has declined home health and is requesting to go to alf facility, case management working on authorization. Neurology will follow up today. Patient is stable. Case discussed with attending Dr. Harper Hayden MD PGY-2 <Statement entered by Harper Stanley MD - 10/11/24 09:31> I attest that I was physically present for the evaluation, physical examination, lab and imaging review of the patient with the residents. I discussed the case with the residents and agree with the findings and plans of care as documented below. Harper Stanley MD Documentation for date of: 10/10/24 Subjective Subjective Interval history: No acute overnight events. Patient seen and examined at bedside with family. Patient reports feeling well today, sore throat alleviated by benzocaine lozenge. Denies chest pain, shortness of breath, abdominal pain, urinary symptoms or lightheadedness. Family at bedside is upset that physical therapy has not worked with patient and that Ensure is not being given. Ensure reordered to be given with meals. Notify PT to possibly come work with patient and will likely visit tomorrow due to high volume PT evaulations. Scheduled benzocaine lozenges twice daily. Exam Vital Signs Temp Pulse Resp BP Pulse Ox O2 Del Method 97.0 F 78 15 133/77 H 98 Room Air 10/10/24 08:00 10/10/24 10:01 10/10/24 08:00 10/10/24 10:01 10/10/24 08:00 10/10/24 08:00 Narrative Exam GENERAL: AOx3, no acute distress, appears older than stated age HEENT: NC/AT, mucous membranes moist, bilateral sclera anicteric CARDIOVASCULAR: regular rate and rhythm, S1/S2 present, no murmurs appreciated PULMONARY: clear to auscultation bilaterally, no rales/rhonchi/wheezes ABDOMINAL: soft, non-tender, non-distended, no rebound/guarding, bowel sounds present EXTREMITIES: no peripheral edema, bilateral inverted feet, 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, BLE strength 5/5 SKIN: warm and dry, intact, no rashes NEURO: CN II-XII grossly intact, no focal deficits, alert, following commands Objective Labs 10/10/24 05:43 10/10/24 05:43 Labs: Laboratory Results - last 24 hr 10/08/24 10/10/24 14:04 05:43 WBC 7.2 RBC 4.21 Hgb 12.5 Hct 38.0 MCV 90 MCH 29.7 MCHC 32.9 RDW Std Deviation 45.3 Plt Count 232 D Neut % (Auto) 69 Lymph % (Auto) 19 [place] % (Auto) 8 Eos % (Auto) 3 Baso % (Auto) 1 Neut # (Auto) 5.0 Lymph # (Auto) 1.4 [place] # (Auto) 0.6 Eos # (Auto) 0.2 Baso # (Auto) 0.1 Immature Gran # (Auto) 0.03 H Absolute Nucleated RBC 0.00 Immature Gran % 0 Nucleated RBC % 0 Sodium 140 Potassium 3.8 Chloride 104 Carbon Dioxide 24.8 Anion Gap 11 BUN 8 L Creatinine 0.6 Estim Creat Clear Calc 60.1 L eGFR > 60 BUN/Creatinine Ratio 13 Glucose 95 Calculated Osmolality 277 Calcium 9.0 Corrected Calcium 9.4 Magnesium 1.7 Total Bilirubin 0.4 AST 17 ALT < 7 L Alkaline Phosphatase 92 Total Protein 5.8 Albumin 3.5 Globulin 2.3 Albumin/Globulin Ratio 1.5 Vitamin B12 258 Folate 14.48 Quality Measures Quality Measures VTE prophylaxis Advance care planning discussed with:: patient Assessment & Plan Assessment Current Active Medications: Generic Name Dose Route Start Last Admin Trade Name Freq PRN Reason Stop Dose Admin Acetaminophen 650 mg 10/08/24 12:56 Acetaminophen 325 Mg Tablet PO 11/07/24 12:55 Q6H PRN Fever >101.5 Amantadine HCl 100 mg 10/08/24 21:00 10/10/24 10:01 Amantadine Hcl 100 Mg Capsule PO 10/15/24 20:59 100 mg BID SAADIA Administration Amlodipine Besylate 5 mg 10/09/24 09:00 10/10/24 10:01 Amlodipine Besylate 5 Mg Tablet PO 11/08/24 08:59 5 mg QDAY SAADIA Administration Aspirin 81 mg 10/09/24 09:00 10/10/24 10:01 Aspirin Ec 81 Mg Tabec PO 11/08/24 08:59 81 mg QDAY SAADIA Administration Atorvastatin Calcium 40 mg 10/09/24 21:00 10/09/24 21:20 Atorvastatin Calcium 20 Mg Tablet PO 11/08/24 20:59 40 mg QPM SAADIA Administration Benzocaine 1 lozenge 10/09/24 18:07 10/09/24 20:24 Benzocaine/Menthol 1 Lozenge PO 11/08/24 18:06 1 lozenge Q4HR PRN Administration SORE THROAT Rytary(Carbidopa- 0 ea 10/09/24 14:00 10/10/24 05:13 Levodopa) Er Capsule PO 11/08/24 13:59 1 capsule 48.75-195 Mg TID SAADIA Administration Duloxetine HCl 60 mg 10/09/24 09:00 10/10/24 10:00 Duloxetine Hcl 30 Mg Capsule PO 11/08/24 08:59 60 mg QDAY SAADIA Administration Enoxaparin Sodium 40 mg 10/09/24 09:00 10/10/24 10:00 Enoxaparin Sod Inj 40 Mg/0.4 Ml Syringe SC 10/23/24 08:59 40 mg QDAY SAADIA Administration Lactated Ringer's 1,000 mls @ 60 mls/hr 10/08/24 13:00 10/10/24 06:05 Lactated Ringers IV 11/07/24 12:59 60 mls/hr .[id number] SAADIA Administration Ondansetron HCl 4 mg 10/08/24 12:56 Ondansetron Inj 2 Mg/Ml Inj 2 Ml IVP 11/07/24 12:55 Q6H PRN NAUSEA OR VOMITING Protocol Ropinirole HCl 2 mg 10/08/24 21:00 10/10/24 10:01 Ropinirole Hcl 1 Mg Tablet PO 11/07/24 20:59 2 mg BID SAADIA Administration Sennosides 1 tab 10/10/24 14:00 Senna/Docusate Sod 1 Tab Tablet PO 11/09/24 13:59 QDAY SAADIA Protocol Tramadol HCl 25 mg 10/08/24 13:15 10/10/24 10:00 Tramadol Hcl 50 Mg Tablet PO 10/13/24 13:14 25 mg BID SAADIA Administration Plan Ms. Soto is a 79-year-old female with past medical history significant for hypertension, restless leg syndrome, rheumatoid arthritis, Hx. of TIA in jan 2023 and Parkinson's disease presented to the ED after feeling generalized weakness and poor oral intake. #Generalized weakness, in the setting of #Poor oral intake States that she has been feeling progressive weakness and is unable to ambulate as she used to because she has been not eating enough Endorses that she often get hallucinations/dreams and causes her stress which leads to her not eating most of the day and then she gets weak. Patient has strictly refused rehab, SNF or any other forms of living situations other than wanting to only be back home. CT of head is negative, labs are largely unremarkable and electrolytes are with in normal limits, UA and UDS clean Plan: - Ordered PT - Ensure plus high protein ordered with meals - Pt will likely will discharge with home health PT as pt refuse SNF placement or acute rehab - Encouraged son at bedside to being food that she may likely to eat #Primary hypertension - Resumed home amlodipine 5 mg daily #Restless leg syndrome Iron low at 31, TIBC low 248, Iron sat low 12, ferritin wnl, TSH wnl, folate and B12 wnl Plan: - Resumed home ropinirole 2 mg BID #Rheumatoid arthritis Right foot is mildly twisted anteriorly, boutonniere deformity noted in both hands. Patient recieves infliximab 100 mg infusions and follows utility mechanic outpatient. Plan: - Resumed home tramadol 25 mg BID #Parkinson's disease Plan: - Resumed home Carbidopa/levodopa, amantadine 100 mg BID and duloxetine 60 mg QD Hospital management: Lines: PIV Diet: Regular Bowel: not indicated GI prophylaxis: not indicated DVT prophylaxis: enoxaparin 40 mg QD [facility] CODE STATUS: DNR Plan of care discussed with attending Dr. Stanley, and PGY-2 Dr. Hayden. Janet Marquez, DO PGY-1 Internal Medicine
[2024-10-10] MEDS: SENNA/DOCUSATE SOD 1 TAB TABLET PO (14:58)
--- NOTE | 2024-10-10 15:47 | PC.CC ---
Pt[facility] is [facility], [facility] accepted and booked. SOC pending pt's discharge. Spoke to Dr. Hayden, he stated he will enter dc summary
--- NOTE | 2024-10-10 16:09 | PC.SS ---
SS was informed by Pravin from PT pt and family are now requesting pt d/c to an acute rehab. SS met with pt and dtr who are requesting [facility] or [facility] in [place]. Dtr and pt aware pt is ready for d/c.
--- NOTE | 2024-10-10 16:23 | PC.SS ---
Addendum entered by Maryann Rivas 10/10/24 16:32: SS received call from Yanni from [facility] in [place] who states they can accept pt today. SS met with pt who is requesting [facility] as her 1st choice. Pt is aware [facility] is able to accept today. SS has called Chelo from [address] but was unsuccessful. Original Note: SS has sent inquiry using [facility] to [facility] and [facility] [place] per daughter's request.
[2024-10-10] MEDS: ATORVASTATIN CALCIUM 20 MG TABLET 40 MG PO (21:13)
[2024-10-10] MEDS: BENZOCAINE/MENTHOL 1 LOZENGE PO (21:19)
[2024-10-11] VITALS: BP 131/81; PULSE 84; RESP 16; TEMP 36.3; O2SAT 94
[2024-10-11] MEDS: RINGERS LACTATED 1000 ML 1,000 ML 60 ML IV (02:58)
[2024-10-11 04:00] VITALS: BP 123/61; PULSE 79; RESP 16; TEMP 36.1; O2SAT 95
[2024-10-11] MEDS: RYTARY PO ×2 (05:21→14:20)
[2024-10-11 05:29] LABS: Basophils # (Auto) 0.1 Thou/mm3 (0.0-0.2); Basophils % (Auto) 1 % (0-2.5); Eosinophils # (Auto) 0.2 Thou/mm3 (0.0-0.5); Eosinophils % (Auto) 3 % (0-10); Hematocrit 33.0 % (36.0-46.0); Hemoglobin 11.1 g/dL (12.0-16.0); Immature Granulocytes Auto 0.04 Thou/mm3 (0.00-0.00); Lymphocytes # (Auto) 1.7 Thou/mm3 (1.0-4.8); Lymphocytes % (Auto) 26 % (10-50); Mean Corpuscular HGB Conc 33.6 g/dl (31.0-37.0); Mean Corpuscular Hemoglobin 30.4 pg (25.0-35.0); Mean Corpuscular Volume 90 fL (80-100); Monocytes # (Auto) 0.6 Thou/mm3 (0.0-0.8); Monocytes % (Auto) 9 % (0-12); Neutrophils # (Auto) 3.9 Thou/mm3 (1.8-7.7); Neutrophils % (Auto) 61 % (37-80); Nucleated Red Blood Cell # 0.00 Thou/mm3 (0.00-0.00); Nucleated Red Blood Cell % 0 /100 WBC (0); Platelet Count 263 Thou/mm3 (140-440); RDW Standard Deviation 45.1 fL (36.4-46.3); Red Blood Count 3.65 Miln/mm3 (4.00-5.20); White Blood Count 6.5 Thou/mm3 (3.6-11.0)
[2024-10-11 05:52] LABS: Alanine Aminotransferase < 7 U/L (10-49); Albumin, Serum 3.3 gm/dL (3.4-4.8); Albumin/Globulin Ratio 1.7 (1.2-2.2); Alkaline Phosphatase 99 U/L (46-116); Anion Gap 9 (7-16); Aspartate Amino Transferase 11 U/L (0-34); BUN/Creatinine Ratio 19 Ratio (12-20); Bilirubin,Total 0.3 mg/dL (0.3-1.2); Blood Urea Nitrogen 13 mg/dL (9-23); Calcium 8.9 mg/dL (8.3-10.6); Calcium (Corrected) 9.5 mg/dL (8.5-10.1); Carbon Dioxide 27.8 mMol/L (20.0-31.0); Chloride 103 mMol/L (98-107); Creatinine (Component) 0.7 mg/dL (0.6-1.3); Estimated Creatinine Clearance 51.5 mL/min (>60); Globulin 2.0 gm/dL (2.3-3.5); Glucose 93 mg/dL (74-106); Magnesium 1.6 mg/dL (1.6-2.6); Osmolality,Calculated 279 (275-295); Potassium 3.7 mMol/L (3.4-5.1); Sodium 140 mMol/L (136-145); Total Protein 5.3 gm/dL (5.7-8.2); eGFR > 60 See Note
[2024-10-11 08:00] VITALS: BP 142/79; PULSE 82; RESP 18; TEMP 36.7; O2SAT 93
[2024-10-11] MEDS: ENOXAPARIN SOD INJ 40 MG/0.4 ML SYRINGE SC (09:41)
[2024-10-11] MEDS: DULoxetine HCL 30 MG CAPSULE 60 MG PO (09:41)
[2024-10-11 09:42] VITALS: BP 142/79; PULSE 82
[2024-10-11] MEDS: SENNA/DOCUSATE SOD 1 TAB TABLET PO (09:42)
[2024-10-11] MEDS: ASPIRIN EC 81 MG TABEC PO (09:42)
[2024-10-11] MEDS: POLYETHYLENE GLYCOL 17 GM PACKET PO (09:42)
[2024-10-11] MEDS: GLYCERIN, ADULT 1 EA SUPP 1 EACH PR (09:43)
[2024-10-11] MEDS: Magnesium Sulfate 4 GM Ivpb 4 GM/50 ML BAG IV (09:43)
--- NOTE | 2024-10-11 10:39 | PC.SS ---
Addendum entered by Maryann Rivas 10/11/24 13:47: Chelo from [facility] did an onsite evaluation with pt and dtr. SS received call from [facility] who states they can accept pt and accommodate a private room. Chelo states they will provide transportation at 5:30pm, Dr. Jansen will be following pt, and number for report is: [phone]. has provided bedside nurse, Sara with number for report and is aware of transportation. Pt is aware. Packet has been placed in patient's chart. Dtr is aware. Original Note: SS spoke to Chelo from [facility] who explained she will review patient's information to check if she meets criteria for their facility and do an onsite with pt and family this morning. SS met with pt and dtr who are aware. Dtr states she spoke to Yanni from [facility] in [place] who is able to offer a private room. Dtr and pt aware pt is ready for d/c.
[2024-10-11 12:00] VITALS: BP 123/70; PULSE 72; RESP 22; TEMP 36.6; O2SAT 93
--- NOTE | 2024-10-11 12:52 | ESDS_ITS ---
<Statement entered by Padmaja Hayden MD - 10/12/24 15:54> Patient was seen and examined by me personally. I have reviewed the below documentation by the team resident and agree with its findings. Discharge plan was discussed with the attending, Dr. Jaden TRIPLETT 79-year-old female with past medical history as below admitted for generalized weakness, patient was found to have poor p.o. intake was admitted for further workup. Dietitian was consulted, patient started on supplement per dietitian recommendations. Further plan is to discharge patient to snf acility, patient to follow outpatient with neurology. Patient is stable for discharge and responded well to hospital treatment. Padmaja Hayden MD Internal Medicine, PGY-2 <Statement entered by Harper Stanley MD - 10/11/24 09:31> I attest that I was physically present for the evaluation, physical examination, lab and imaging review of the patient with the residents. I discussed the case with the residents and agree with the findings and plans of care as documented below. Harper Stanley MD Planned Discharge Date 10/11/24 DS: Providers Provider Date of admission: 10/09/24 15:01 Primary care physician: Physician No Primary/Family Admitting Provider: Harper Stanley MD Attending Provider on Admission: Harper Stanley MD Consults: 10/07/24 23:31 Referral Physical Therapy Stat Comment: Physician Instructions: Instructions: eval, generalized weakness, consider placement 10/08/24 13:02 Referral Physical Therapy Routine Comment: Physician Instructions: Attending Provider on DC: Harper Stanley MD Discharging Provider: Harper Stanley MD DS: Diagnosis Problem List Completed Was Problem List Reviewed/Reconciled?: Yes Hospital Course Hospital Course Hospital course: Summary: Mercedes Soto is a 79F with past medical history significant for hypertension, restless leg syndrome, rheumatoid arthritis, Hx. of TIA in jan 2023 and Parkinson's disease presented to the ED after feeling generalized weakness and poor oral intake. On admission, patient stated that she has been feeling progressively weakness and not eating enough. Endorses that she often gets hallucinations/dreams that cause her stress which decreases her appetite. Patient was treated with high calorie and protein meals and supplements, and worked with physical therapy. Physical therapy recommended SNF or acute care placement, and patient will be discharged to acute rehabilitation. On discharge, patient is hemodynamically stable, labs and vitals reviewed to be stable and patient is ready to go home with home health. Imaging: CT of head is negative for acute hemorrhage, mass effect or midline shift Hip X-ray shows no acute hip or pelvic fracture, severe osteopenia Discharge Recommendations: - Please take all medications as prescribed - Please increase protein and calorie intake as tolerated - Continue all home medications as prescribed - Please follow up with your PCP within one week of discharge - Please follow up with neurologist Dr. Rivas with in 2 weeks - If your symptoms worsen, please seek immediate medical attention and return to your nearest emergency room. - If you do not have a PCP, you may follow up at the [facility] at [address] [place] [address] [id number] [id number], Hospital Diagnoses: #Generalized weakness, in the setting of #Poor oral intake #Primary hypertension #Restless leg syndrome #Rheumatoid arthritis #Parkinson's disease Janet Marquez, DO Internal Medicine, PGY-1 Status at Discharge Cognitive/behavioral status at discharge: Stable Overall status at discharge: patient is progressing back to baseline Time Spent with Patient Time attestation: Total time spent providing and/or coordinating discharge services: 33 min Time spent: Greater than 30 minutes Exam Vital Signs Temp Pulse Resp BP Pulse Ox O2 Del Method 97.6 F 93 17 116/72 95 Room Air 10/10/24 12:00 10/10/24 12:00 10/10/24 12:00 10/10/24 12:00 10/10/24 12:10/10/24 12:00 Narrative Exam GENERAL: AOx3, no acute distress, appears older than stated age HEENT: NC/AT, mucous membranes moist, bilateral sclera anicteric CARDIOVASCULAR: regular rate and rhythm, S1/S2 present, no murmurs appreciated PULMONARY: clear to auscultation bilaterally, no rales/rhonchi/wheezes ABDOMINAL: soft, non-tender, non-distended, no rebound/guarding, bowel sounds present EXTREMITIES: no peripheral edema, bilateral inverted feet, 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 Rivas with in 2 weeks -Follow up with PCP in 1-2 weeks -Return to ED if symptoms worsen Prescriptions/Referrals Prescriptions/Med Rec: New sennosides-docusate sodium 8.6-50 mg Tablet 1 tab PO QDAY Qty: 10 0RF Nuplazid 34 mg capsule 34 mg PO QDAY Qty: 30 0RF Continued amantadine HCl 100 mg tablet 100 mg PO QDAY Patient Comments: TAKE 1 TABLET BY MOUTH TWICE A DAY atorvastatin 40 mg tablet 40 mg PO QPM Patient Comments: TAKE 1 TABLET BY MOUTH EVERY DAY amlodipine 5 mg tablet 5 mg PO QDAY Patient Comments: TAKE 1 TABLET BY MOUTH EVERY DAY ropinirole 2 mg tablet 2 mg PO BID Patient Comments: TAKE 1 TABLET BY MOUTH THREE TIMES A DAY tramadol 100 mg tablet extended release 24 hr 50 mg PO BID PRN (Reason: Pain) Patient Comments: TAKE 1 TABLET BY MOUTH EVERY DAY Rytary 48.75-195 mg capsule, extended release 1 cap PO TID aspirin 81 mg Tablet,Delayed Release (Dr/Ec) 81 mg PO QDAY No Action Nuplazid 34 mg capsule 34 mg PO QAM Referrals: No Primary/Family,Physician [Primary Care Provider] - Patient/Caregiver Discharge Instructions Discharge Activity: activity as tolerated Education Materials: ED Weakness (Uncertain Cause) Print Language: Greenlandic Stand Alone Forms: Eleanor Award Info., Patient Portal Info Letter Discharge Order Discharge Orders: Discharge (Routine); Ordered 10/10/24 Ordered By: Padmaja Hayden Quality Discharge Quality Measures VTE prophylaxis
[2024-10-11 16:00] VITALS: BP 122/64; PULSE 86; RESP 16; TEMP 36.7; O2SAT 95
== END 2024-10-11 17:27 | disposition skilled nursing facility (03) | DRG 948 ==
LOC: SERX 10-08 06:25 → SERHOLD 10-08 16:10 → S3NX 10-08 16:31 → SERHOLD 10-10 06:35 → S3NX 10-10 06:35
PROVIDERS: Physician Assistant Medical; Admitting Provider Student in an Organized Health Care Education/Training Program; Emergency Provider Emergency Medicine; Visit Provider Student in an Organized Health Care Education/Training Program
DX: R53.1 Weakness (principal); I10 Essential (primary) hypertension; G25.81 Restless legs syndrome; M06.9 Rheumatoid arthritis, unspecified; G20.A1 Parkinson's disease without dyskinesia, without mention of fluctuations; Z96.652 Presence of left artificial knee joint; M20.022 Boutonniere deformity of left finger(s); Z79.899 Other long term (current) drug therapy; M20.021 Boutonniere deformity of right finger(s); Z66 Do not resuscitate; Z86.73 Personal history of transient ischemic attack (TIA), and cerebral infarction without residual deficits
CPT/HCPCS: 36415; 70450; 73502; 80053; 80061; 80307; 80320; 81001; 82607; 82728; 82746; 83540; 83550; 83605; 83690; 83735; 84100; 84443; 84703; 85025; 85610; 87040; 93225; 96360; 96361; 99284; G0378; J1650; J3475; J7120; A9270; G0480

== ENCOUNTER → 2025-01-03 | Outpatient (CLI) | payer MEDICARE, BC, SELFPAY ==
[2025-01-03 11:09] LABS: Parathyroid Hormone Intact 90.0 pg/ml (18.5-88.0)
[2025-01-03 11:16] LABS: Vitamin D 25 Hydroxy Total 31.6 ng/mL (7.3-40.2)
[2025-01-03 11:22] LABS: Basophils # (Auto) 0.1 Thou/mm3 (0.0-0.2); Basophils % (Auto) 1 % (0-2.5); Eosinophils # (Auto) 0.1 Thou/mm3 (0.0-0.5); Eosinophils % (Auto) 1 % (0-10); Hematocrit 43.3 % (36.0-46.0); Hemoglobin 14.4 g/dL (12.0-16.0); Immature Granulocytes Auto 0.02 Thou/mm3 (0.00-0.00); Lymphocytes # (Auto) 1.7 Thou/mm3 (1.0-4.8); Lymphocytes % (Auto) 19 % (10-50); Mean Corpuscular HGB Conc 33.3 g/dl (31.0-37.0); Mean Corpuscular Hemoglobin 30.9 pg (25.0-35.0); Mean Corpuscular Volume 93 fL (80-100); Monocytes # (Auto) 0.6 Thou/mm3 (0.0-0.8); Monocytes % (Auto) 7 % (0-12); Neutrophils # (Auto) 6.2 Thou/mm3 (1.8-7.7); Neutrophils % (Auto) 72 % (37-80); Nucleated Red Blood Cell # 0.00 Thou/mm3 (0.00-0.00); Nucleated Red Blood Cell % 0 /100 WBC (0); Platelet Count 317 Thou/mm3 (140-440); RDW Standard Deviation 46.2 fL (36.4-46.3); Red Blood Count 4.66 Miln/mm3 (4.00-5.20); White Blood Count 8.6 Thou/mm3 (3.6-11.0)
[2025-01-03 11:44] LABS: Alanine Aminotransferase < 7 U/L (10-49); Albumin, Serum 4.6 gm/dL (3.4-4.8); Albumin/Globulin Ratio 2.0 (1.2-2.2); Alkaline Phosphatase 105 U/L (46-116); Anion Gap 11 (7-16); Aspartate Amino Transferase 22 U/L (0-34); BUN/Creatinine Ratio 20 Ratio (12-20); Bilirubin,Total 0.8 mg/dL (0.3-1.2); Blood Urea Nitrogen 18 mg/dL (9-23); C-Reactive Protein < 0.5 mg/dL (0.0-0.9); Calcium 9.0 mg/dL (8.3-10.6); Calcium (Corrected) 9.0 mg/dL (8.5-10.1); Carbon Dioxide 24.4 mMol/L (20.0-31.0); Cardiac Risk Estimate 2.2 RATIO (3.7-5.6); Chloride 106 mMol/L (98-107); Cholesterol 153 mg/dL (132-200); Creatinine (Component) 0.9 mg/dL (0.6-1.3); Free T4 (Free Thyroxine) 1.41 ng/dL (0.89-1.76); Globulin 2.3 gm/dL (2.3-3.5); Glucose 99 mg/dL (74-106); HDL Cholesterol 70 mg/dL (40-60); LDL Cholesterol,Calculated 71 mg/dL (0-130); Magnesium 2.0 mg/dL (1.6-2.6); Osmolality,Calculated 283 (275-295); Phosphorous 3.7 mg/dL (2.4-5.1); Potassium 4.4 mMol/L (3.4-5.1); Sodium 141 mMol/L (136-145); Thyroid Stimulating Hormone 1.20 uIU/mL (0.55-4.78); Total Protein 6.9 gm/dL (5.7-8.2); Triglycerides 60 mg/dL (30-150); eGFR > 60 See Note
[2025-01-03 12:29] LABS: Sed Rate (ESR) 24 mm/hr (0-30)
== END | disposition home or self-care (01) ==
PROVIDERS: PCP Family Medicine; Referring Provider Internal Medicine; Visit Provider Student in an Organized Health Care Education/Training Program
DX: D50.0 Iron deficiency anemia secondary to blood loss (chronic) (principal); Z13.1 Encounter for screening for diabetes mellitus; E78.1 Pure hyperglyceridemia; E03.2 Hypothyroidism due to medicaments and other exogenous substances; D35.1 Benign neoplasm of parathyroid gland; E21.3 Hyperparathyroidism, unspecified; E55.9 Vitamin D deficiency, unspecified; E78.00 Pure hypercholesterolemia, unspecified; F34.1 Dysthymic disorder; G20.A1 Parkinson's disease without dyskinesia, without mention of fluctuations; G89.29 Other chronic pain; I10 Essential (primary) hypertension; M06.09 Rheumatoid arthritis without rheumatoid factor, multiple sites; M17.12 Unilateral primary osteoarthritis, left knee; M20.032 Swan-neck deformity of left finger(s); M21.941 Unspecified acquired deformity of hand, right hand; M25.511 Pain in right shoulder; M47.12 Other spondylosis with myelopathy, cervical region; M47.812 Spondylosis without myelopathy or radiculopathy, cervical region; M54.59 Other low back pain; M81.0 Age-related osteoporosis without current pathological fracture; R29.898 Other symptoms and signs involving the musculoskeletal system; R53.83 Other fatigue; R79.89 Other specified abnormal findings of blood chemistry; W10.1XXS Fall (on)(from) sidewalk curb, sequela; Z13.820 Encounter for screening for osteoporosis; Z78.0 Asymptomatic menopausal state; Z79.83 Long term (current) use of bisphosphonates; Z79.899 Other long term (current) drug therapy
CPT/HCPCS: 36415; 80053; 80061; 82306; 83735; 83970; 84100; 84439; 84443; 85025; 85652; 86140

== ENCOUNTER → 2025-01-23 | Outpatient (CLI) | payer MEDICARE, BC, SELFPAY ==
[2025-01-23 13:31] LABS: Basophils # (Auto) 0.1 Thou/mm3 (0.0-0.2); Basophils % (Auto) 1 % (0-2.5); Eosinophils # (Auto) 0.3 Thou/mm3 (0.0-0.5); Eosinophils % (Auto) 4 % (0-10); Hematocrit 42.2 % (36.0-46.0); Hemoglobin 13.6 g/dL (12.0-16.0); Immature Granulocytes Auto 0.02 Thou/mm3 (0.00-0.00); Lymphocytes # (Auto) 1.2 Thou/mm3 (1.0-4.8); Lymphocytes % (Auto) 16 % (10-50); Mean Corpuscular HGB Conc 32.2 g/dl (31.0-37.0); Mean Corpuscular Hemoglobin 30.2 pg (25.0-35.0); Mean Corpuscular Volume 94 fL (80-100); Monocytes # (Auto) 0.5 Thou/mm3 (0.0-0.8); Monocytes % (Auto) 7 % (0-12); Neutrophils # (Auto) 5.4 Thou/mm3 (1.8-7.7); Neutrophils % (Auto) 71 % (37-80); Nucleated Red Blood Cell # 0.00 Thou/mm3 (0.00-0.00); Nucleated Red Blood Cell % 0 /100 WBC (0); Platelet Count 317 Thou/mm3 (140-440); RDW Standard Deviation 46.6 fL (36.4-46.3); Red Blood Count 4.51 Miln/mm3 (4.00-5.20); White Blood Count 7.6 Thou/mm3 (3.6-11.0)
[2025-01-23 13:51] LABS: Parathyroid Hormone Intact 76.5 pg/ml (18.5-88.0)
[2025-01-23 13:56] LABS: Vitamin D 25 Hydroxy Total 35.7 ng/mL (7.3-40.2)
[2025-01-23 14:16] LABS: Alanine Aminotransferase < 7 U/L (10-49); Albumin, Serum 4.4 gm/dL (3.4-4.8); Albumin/Globulin Ratio 1.6 (1.2-2.2); Alkaline Phosphatase 93 U/L (46-116); Anion Gap 11 (7-16); Aspartate Amino Transferase 19 U/L (0-34); BUN/Creatinine Ratio 25 Ratio (12-20); Bilirubin,Total 0.7 mg/dL (0.3-1.2); Blood Urea Nitrogen 20 mg/dL (9-23); C-Reactive Protein < 0.5 mg/dL (0.0-0.9); Calcium 9.0 mg/dL (8.3-10.6); Calcium (Corrected) 9.0 mg/dL (8.5-10.1); Carbon Dioxide 27.0 mMol/L (20.0-31.0); Chloride 105 mMol/L (98-107); Creatinine (Component) 0.8 mg/dL (0.6-1.3); Globulin 2.8 gm/dL (2.3-3.5); Glucose 93 mg/dL (74-106); Osmolality,Calculated 287 (275-295); Potassium 4.6 mMol/L (3.4-5.1); Sodium 143 mMol/L (136-145); Total Protein 7.2 gm/dL (5.7-8.2); eGFR > 60 See Note
[2025-01-23 14:24] LABS: Sed Rate (ESR) 10 mm/hr (0-30)
== END | disposition home or self-care (01) ==
LOC: COPL 11:51
PROVIDERS: PCP Family Medicine; Referring Provider Internal Medicine; Visit Provider Internal Medicine
DX: D35.1 Benign neoplasm of parathyroid gland (principal); E21.3 Hyperparathyroidism, unspecified; E55.9 Vitamin D deficiency, unspecified; E78.00 Pure hypercholesterolemia, unspecified; F34.1 Dysthymic disorder; G20.A1 Parkinson's disease without dyskinesia, without mention of fluctuations; G89.29 Other chronic pain; I10 Essential (primary) hypertension; M06.09 Rheumatoid arthritis without rheumatoid factor, multiple sites; M17.12 Unilateral primary osteoarthritis, left knee; M20.032 Swan-neck deformity of left finger(s); M21.941 Unspecified acquired deformity of hand, right hand; M25.511 Pain in right shoulder; M47.12 Other spondylosis with myelopathy, cervical region; M47.812 Spondylosis without myelopathy or radiculopathy, cervical region; M54.59 Other low back pain; M81.0 Age-related osteoporosis without current pathological fracture; R29.898 Other symptoms and signs involving the musculoskeletal system; R53.83 Other fatigue; R79.89 Other specified abnormal findings of blood chemistry; Z13.820 Encounter for screening for osteoporosis; Z78.0 Asymptomatic menopausal state; Z79.83 Long term (current) use of bisphosphonates; Z79.899 Other long term (current) drug therapy
CPT/HCPCS: 36415; 80053; 82306; 83970; 85025; 85652; 86140